=== PATIENT | female | born 1970 | race Caucasian/White ===

== ENCOUNTER 2017-09-15 14:18 | Inpatient (IN) | payer MEDICAID ==
[~2017-09-15] VITALS: Ht 165.1 cm; Wt 39.9 kg
--- NOTE | 2017-09-15 12:20 | NUR ---
ATTEMPTED TO DO RESPIRATORY SPUTUM COLLECTION. PT UNABLE TO COUGH, REFUSED TO CONTINUE AT THIS TIME. FELA SHUKLA NOTIFIED. Addendum: 09/16/17 at 0334 by CHARLENE MUNROE RT INCORRECT TIME DOCUMENTED. CORRECT TIME 09/16/17 AT 0020.
--- NOTE | 2017-09-15 14:30 | NUR ---
AAOX3, C/O ON/OFF COUGH,CHEST PAIN X 3MONTHS, PAINFUL SWALLOWING H/O AIDS, HAS NOT TAKEN HER MEDS SINCE 10/2016. RR IS EVEN AND UNLABORED WITH NAD NOTED. ASSISTED TO HOSPITAL GOWN. PLACED ON MONITOR. WILL CONTINUOUSLY MONITOR THE PATIENT. AWAITING MD FOR EVAL.
[2017-09-15 15:26] LABS: BASOPHILS % (AUTO) 0.5 % (0.0-2.0); EOSINOPHILS % (AUTO) 0.6 % (0.0-6.0); HEMATOCRIT 38 % (33-45); HEMOGLOBIN 12.6 g/dL (11.5-14.8); MEAN CORPUSCULAR HGB CONC 33 g/dl (31.0-36.0); MEAN CORPUSCULAR VOLUME 87 fL (82-100); MONOCYTES # (AUTO) 0.3 /CMM (0.1-1.30); MONOCYTES % (AUTO) 5.9 % (2.0-12.0); NEUTROPHILS # (AUTO) 3.3 /CMM (1.8-8.9); PLATELET COUNT (AUTO) 325 /CMM (150-450); RDW COEFFICIENT OF VARIATION 15.2 (11.5-15.0); RED BLOOD CELL COUNT(AUTO) 4.35 MIL/uL (4.0-5.2); WHITE BLOOD COUNT (AUTO) 4.6 K/uL (4.3-11.0)
[2017-09-15] MEDS ORDERED: LEVO750T21 PO (15:35)
[2017-09-15] MEDS ORDERED: OXYC-132 PO (15:35)
[2017-09-15] MEDS ORDERED: ALPR1TAB2 PO (15:35)
[2017-09-15] MEDS ORDERED: DOLU1TAB PO (15:35)
[2017-09-15] MEDS ORDERED: BICT1TAB PO (15:35)
[2017-09-15] MEDS ORDERED: EMTR1TAB17 PO (15:35)
[2017-09-15] MEDS ORDERED: SULF1TAB48 PO (15:35)
[2017-09-15] MEDS ORDERED: FLUC200T8 PO (15:35)
[2017-09-15] MEDS ORDERED: ESCI20TA PO (15:35)
[2017-09-15 15:36] LABS: CALCIUM, SERUM 8.7 mg/dL (8.5-10.1); CARBON DIOXIDE 31 mmol/L (21-32); CHLORIDE 103 mmol/L (98-107); CREATININE 0.8 mg/dL (0.6-1.3); GLUCOSE 82 mg/dL (74-106); POTASSIUM 3.7 mmol/L (3.5-5.1); SODIUM SERUM 138 mmol/L (136-145); UREA NITROGEN, BLOOD 23 mg/dL (7-18)
[2017-09-15 15:40] LABS: INR 0.9 (0.85-1.15)
[2017-09-15] MEDS ORDERED: CEFTRIAXONE 1GM BAG (ER ONLY) 50 ML IV ONE ×2 (15:40→16:00)
--- NOTE | 2017-09-15 15:40 | NUR ---
CALLED FOR FOOD TRAY.
[2017-09-15 15:42] LABS: ALANINE AMINOTRANSFERASE 16 U/L (12-78); ALKALINE PHOSPHATASE 82 U/L (46-116); ASPARTATE AMINOTRANSFERASE 56 U/L (15-37); BILIRUBIN,TOTAL 0.1 mg/dL (0.2-1.0); TOTAL PROTEIN, SERUM 8.4 g/dL (6.4-8.2)
[2017-09-15 15:44] LABS: TROPONIN I < 0.017 ng/mL (0.00-0.056)
[2017-09-15] MEDS ORDERED: AZITHROMYCIN 500 MG in IV D5W 250 ML IV ONE (16:00)
--- NOTE | 2017-09-15 16:10 | NUR ---
ms edgar received a new admission, awake,alert,oriented x2,patient came from er w/ dx of pneumonia/weakness. st -112 on monitor, repositioned for comfort, all needs attended. Addendum: 09/15/17 at 1908 by MAURI JANSEN RN wrong time, should be [id number]
--- NOTE | 2017-09-15 17:15 | NUR ---
REPORT GIVEN TO FELA DOTSON FOR DENY TELE [phone]
--- NOTE | 2017-09-15 17:40 | NUR ---
PATIENT TRANSPORTED TO [facility] VIA ACLS PROTOCOL. RNMAURI TO PROVIDE DENY.
[2017-09-15 18:15] VITALS: BP 105/65
--- NOTE | 2017-09-15 18:15 | NUR ---
ms rn received a new admission, awake,alert,oriented x2,patient came from er w/ dx of pneumonia/weakness. st -112 on monitor, repositioned for comfort, all needs attended.
[2017-09-15 18:30] VITALS: BP 105/65
--- NOTE | 2017-09-15 18:30 | NUR ---
ms rn text jose guadalupe for orders.
[2017-09-15] MEDS ORDERED: ZOLPIDEM TARTRATE 5 MG TABLET PO PRN (19:00)
[2017-09-15] MEDS ORDERED: HYDROCODONE/APAP 5/325MG 1 EACH TABLET PO PRN (19:00)
[2017-09-15] MEDS ORDERED: ONDANSETRON HCL/PF 4 MG/2 ML VIAL IVP PRN (19:00)
--- NOTE | 2017-09-15 19:00 | NUR ---
ms rn on bed, no distress,will endorsed to date night caregiver for radha.
[2017-09-15] MEDS: ALBUTEROL FS 2.5 MG/0.5 ML VIAL.NEB NEB SCH (19:30)
[2017-09-15] MEDS: IPRATROPIUM NEB FS 0.5 MG/2.5 ML AMPUL.NEB NEB SCH (19:30)
--- NOTE | 2017-09-15 19:35 | NUR ---
TELE/RN NOTES RECEIVED PT. LYING IN BED. PT. IS AWAKE, ALERT AND ORIENTED X1-2. BREATHING EVEN AND UNLABORED ON 2LPM O2 VIA NC. NO SOB, RESPIRATORY DISTRESS OR COMPLAINTS OF PAIN NOTED AT THIS TIME. PT. WITH EXTERNAL FINANCIAL REPORTING ADVISOR PRESENT AND INTACT. CURRENT RHYTHM = SINUS TACH HR 110. PT. WITH RIGHT AC 20 GAUGE IV SALINE LOCK PRESENT, PATENT AND INTACT. BED LOCKED AND IN LOWEST POSITION, SIDE RAILS UP X3, BED ALARM ON, CALL LIGHT WITHIN REACH, WILL CONTINUE TO MONITOR.
[2017-09-15 20:00] VITALS: BP 90/60
--- NOTE | 2017-09-15 20:15 | NUR ---
TELE/RN NOTES PT. NOTED WITH TEMPERATURE OF 102.6F. BLOOD CULTURES WERE DONE IN ER PRIOR TO ARRIVAL TO THE FLOOR. PT. RECEIVED IV ANTIBIOTICS IN THE ER. WILL ADMINISTER TO PT. TYLENOL ORDERED AND WILL IMPLEMENT COOLING MEASURES. WILL CONTINUE TO MONITOR.
[2017-09-15] MEDS: IV NS 0.9% 1,000 ML IV PRN (20:34)
[2017-09-15] MEDS: ACETAMINOPHEN 325 MG TABLET PO PRN (20:34)
--- NOTE | 2017-09-15 21:20 | NUR ---
TELE/RN NOTES PT. TEMPERATURE IS 100.4F. WILL CONTINUE WITH COOLING MEASURES. WILL CONTINUE TO MONITOR.
[2017-09-15] MEDS: ENOXAPARIN SODIUM 40 MG/0.4 ML DISP.SYRIN SQ SCH (21:45)
[2017-09-15] MEDS: SULFAMETHOXAZOLE/TRIMETHOPRIM 15 ML in IV D5W 250 ML IV SCH (21:46)
--- NOTE | 2017-09-15 22:50 | NUR ---
TELE/RN NOTES PT. TEMPERATURE IS 98.5F. PT. APPEARS COMFORTABLE AT THE MOMENT. COOLING MEASURES EFFECTIVE. WILL CONTINUE TO MONITOR.
--- NOTE | 2017-09-15 23:24 | NUR ---
TX @1930 NOT GIVEN, PT IS ASLEEP. FELA SHUKLA NOTIFIED.
[2017-09-16] VITALS: BP 93/53
[2017-09-16] MEDS ORDERED: SULFAMETHOXAZOLE/TRIMETHOPRIM 10 ML in IV D5W 250 ML IV SCH ×2
[2017-09-16] MEDS: DEXAMETHASONE SOD PHOSPHATE 10 MG/ML VIAL IV SCH ×5 (00:06→23:48)
--- NOTE | 2017-09-16 00:20 | NUR ---
ATTEMPTED TO DO RESPIRATORY SPUTUM COLLECTION. PT UNABLE TO COUGH, REFUSED TO CONTINUE AT THIS TIME. FELA SHUKLA NOTIFIED.
--- NOTE | 2017-09-16 00:25 | NUR ---
TELE/RN NOTES RT. CHARLENE ATTEMPTED TO OBTAIN PT. SPUTUM FOR STAT ORDERS OF RESPIRATORY CULTURE AND PNEUMOCYSTITIS SMEAR. PT. UNABLE TO COUGH AND IS REFUSING TO CONTINUE TO ATTEMPT AT THIS TIME. WILL ATTEMPT AGAIN AT A LATER TIME. WILL CONTINUE TO MONITOR.
[2017-09-16 04:34] VITALS: BP 98/61
[2017-09-16] MEDS: SULFAMETHOXAZOLE/TRIMETHOPRIM 15 ML in IV D5W 250 ML IV SCH ×3 (05:19→23:48)
--- NOTE | 2017-09-16 06:00 | NUR ---
TELE/RN NOTES PT. IS REFUSING PICTURES OF HER RIGHT HIP/UPPER THIGH RASH. PT. STATES SHE WANTS TO BE LEFT ALONE TO SLEEP. WILL ENDORSE TO DAYSHIFT NURSE TO ATTEMPT TO TAKE PICTURE OF RASH.
--- NOTE | 2017-09-16 06:44 | NUR ---
TELE/RN NOTES PT. IS LYING IN BED RESTING. BREATHING EVEN AND UNLABORED ON 2LPM O2 VIA NC. NO SOB, RESPIRATORY DISTRESS OR COMPLAINTS OF PAIN NOTED AT THIS TIME. PT. WITH EXTERNAL PLASTICS WORKER PRESENT AND INTACT. CURRENT RHYTHM = SINUS RHYTHM HR 69. PT. WITH RIGHT AC 20 GAUGE PERIPHERAL IV PRESENT, PATENT AND INTACT ADMINISTERING TO PT. NS @ 75 ML/HR. ALL PT. NEEDS MET. BED LOCKED AND IN LOWEST POSITION, SIDE RAILS UP X3, BED ALARM ON, CALL LIGHT WITHIN REACH, WILL ENDORSE TO DAYSHIFT NURSE FOR CONTINUITY OF CARE.
[2017-09-16 07:05] LABS: BASOPHILS % (AUTO) 0.1 % (0.0-2.0); EOSINOPHILS % (AUTO) 0.2 % (0.0-6.0); HEMATOCRIT 35 % (33-45); HEMOGLOBIN 11.8 g/dL (11.5-14.8); LYMPHOCYTES # (AUTO) 0.8 /CMM (0.8-4.8); LYMPHOCYTES % (AUTO) 16.4 % (20.0-44.0); MEAN CORPUSCULAR HGB CONC 34 g/dl (31.0-36.0); MEAN CORPUSCULAR VOLUME 87 fL (82-100); MONOCYTES # (AUTO) 0.1 /CMM (0.1-1.30); MONOCYTES % (AUTO) 1.3 % (2.0-12.0); PLATELET COUNT (AUTO) 255 /CMM (150-450); RDW COEFFICIENT OF VARIATION 15.3 (11.5-15.0); RED BLOOD CELL COUNT(AUTO) 4.03 MIL/uL (4.0-5.2); WHITE BLOOD COUNT (AUTO) 4.9 K/uL (4.3-11.0)
[2017-09-16 07:08] LABS: *BASOS 0 % (Not Estab.); *EOS 0 % (Not Estab.); *HCT 37.9 % (34.0-46.6); *HGB 12.7 g/dL (11.1-15.9); *IMMATURE GRANULOCYTES 0 % (Not Estab.); *LYMPHOCYTES 16 % (Not Estab.); *LYMPHS, ABSOLUTE 0.9 x10E3/uL (0.7-3.1); *MCH 29.2 pg (26.6-33.0); *MCHC 33.5 g/dL (31.5-35.7); *MCV 87 fL (79-97); *MONOCYTES 5 % (Not Estab.); *MONOS, ABSOLUTE 0.3 x10E3/uL (0.1-0.9); *NEUTROPHILS 79 % (Not Estab.); *NEUTROPHILS, ABSOLUTE 4.2 x10E3/uL (1.4-7.0); *PLT 329 x10E3/uL (150-379); *RBC 4.35 x10E6/uL (3.77-5.28); *RDW 15.9 % (12.3-15.4)
--- NOTE | 2017-09-16 07:10 | NUR ---
REPORT RECEIVED AT THE BEDSIDE. PATIENT IS RESTING COMFORTABLY IN BED. NO SOB OR DISTRESS NOTED AT THIS TIME. PATIENT DENIES PAIN AT THIS TIME. HEART RATE SR IN THE 70S. BED IN A LOW POSITION, CALL LIGHT WITHIN PATIENT REACH. WILL MONITOR.
[2017-09-16 07:15] LABS: ALBUMIN 1.7 g/dL (3.4-5.0); BILIRUBIN,TOTAL 0.1 mg/dL (0.2-1.0); CALCIUM, SERUM 8.1 mg/dL (8.5-10.1); CREATININE 0.7 mg/dL (0.6-1.3); MAGNESIUM 1.8 mg/dL (1.8-2.4); PHOSPHORUS 4.8 mg/dL (2.5-4.9); POTASSIUM 3.6 mmol/L (3.5-5.1); TOTAL PROTEIN, SERUM 7.3 g/dL (6.4-8.2)
[2017-09-16 07:20] LABS: THYROID STIMULATING HORMONE 0.267 uIU/mL (0.358-3.74)
[2017-09-16] MEDS: ALBUTEROL FS 2.5 MG/0.5 ML VIAL.NEB NEB SCH ×4 (07:33→19:44)
[2017-09-16] MEDS: IPRATROPIUM NEB FS 0.5 MG/2.5 ML AMPUL.NEB NEB SCH ×4 (07:33→19:44)
[2017-09-16 08:00] VITALS: BP 99/61
--- NOTE | 2017-09-16 08:00 | NUR ---
PATIENT STILL REFUSING PICTURES OF RASH ON RIGHT THIGH. WILL CONTINUE TO ATTEMPT.
--- NOTE | 2017-09-16 10:40 | NUR ---
WENT TO PATIENT AND ENCOURAGED HER TO TURN SHE HAS BEEN IN THE SAME POSITION ON HER BACK SINCE THE MORNING. PT STATS "LEAVE ME ALONE I AM COMFORTABLE." EXPLAINED THE RISKS OF PROLONGED PERIODS OF TIME SPENT IN ONE POSITION IN TERMS OF SKIN BREAKDOWN, BUT THE PATIENT STILL REFUSES TO MOVE. WILL CONTINUE TO ATTEMPT TO ENCOURAGE TURNING.
--- NOTE | 2017-09-16 11:00 | NUR ---
CJ VERGARA ON FLOOR. INFORMED HER OF RASH ON RIGHT LATERAL THIGH. SHE STATES SHE WILL PLACE ORDERS FOR TREATMENT.
[2017-09-16] MEDS: LEVOFLOXACIN 750 MG /D5W 150ML 150 ML IV SCH (11:11)
[2017-09-16] MEDS: Z GUARD REMEDY 2 OZ OINT TP PRN ×2 (11:11→21:24)
[2017-09-16] MEDS: IV NS 0.9% 1,000 ML IV PRN (11:12)
--- NOTE | 2017-09-16 11:14 | NUR ---
WOUND CARE CONSULT: PT WAS SEEN BY SURGICAL TEAM. DEFER TO SURGICAL TEAM FOR WOUND TREATMENT PLAN. ALL SKIN PROTECTION MEASURES IN PLACE AND DISCUSSED WITH NURSING STAFF. CURRENT FANY SCORE IS 18.
--- NOTE | 2017-09-16 11:20 | NUR ---
RT NOTE ENCOURAGED PATIENT TO COUGH UP SECRETIONS FOR SPUTUM INDUCTION. PATIENT IS AWARE AND WILL ATTEMPT TO COUGH UP SECRETIONS IF NECESSARY. NURSE, BC, SINCERE.
--- NOTE | 2017-09-16 13:58 | NUR ---
ORDERED 3% SALINE SOLUTION FOR SPUTUM COLLECTION WITH NEXT BREATHING TX. INFORMED RT OF NEED FOR SPUTUM COLLECTION FOR NEXT TWO MORNINGS WELL.
[2017-09-16 14:22] LABS: *% CD 4 POS. LYMPH 10.6 % (30.8-58.5); *% CD 8 POS. LYMPH 71.1 % (12.0-35.5); *ABSOLUTE CD 4 HELPER 95 /uL (359-1519); *ABSOLUTE CD 8 SUPPRESSOR 640 /uL (109-897); *CD4/CD8 RATIO 0.15 (0.92-3.72)
[2017-09-16] MEDS ORDERED: PETROLATUM,WHITE PACKET 5 GM PACKET TP PRN (14:30)
[2017-09-16] MEDS ORDERED: SODIUM CL FOR INHALATION 3% 15 ML VIAL.NEB IH ONE (15:00)
--- NOTE | 2017-09-16 15:50 | NUR ---
RT NOTE ADMINISTERED HYPERTONIC SOLUTION VIA AEROSOL MASK. ENCOURAGED PATIENT TO COUGH UP SPUTUM POST TX. PATIENT UNABLE TO COUGH. NURSE, SINCERE YANCEY.
[2017-09-16 16:00] VITALS: BP 131/70
--- NOTE | 2017-09-16 18:47 | NUR ---
PT REPORTS ORAL THRUSH STARTING. CALLED DR YANCEY FOR ORDERS. WAITING FOR RETURN CALL. WILL DEFER TO NIGHT RN.
[2017-09-16 20:00] VITALS: BP_SYST 86; BP_SYST 99; BP_DIAS 56
--- NOTE | 2017-09-16 20:30 | NUR ---
MS CURED MEAT PACKING SUPERVISOR NOTES SEEN PT IN BED AWAKE AND ALERT WITH IVF OF NS AT 75ML/HR. REPOSITION HER BACK TO SEMI FOWLERS AFTER BLOOD PRESSURE BACK TO WITHIN NORMAL LIMIT. SNACKS ALSO SERVED PER PT COMFORT. SHE STATED "THANK YOU ".KEPT HER WARM AND COMFORTABLE AT ALL TIMES. WILL CONTINUE TO MONITOR. PLACE CALL LIGHT AT REACH.
[2017-09-16] MEDS: ENOXAPARIN SODIUM 40 MG/0.4 ML DISP.SYRIN SQ SCH (21:33)
--- NOTE | 2017-09-16 22:00 | NUR ---
MS DAVID NOTES AMBIEN GIVEN PER PT REQUESTED. EDUCATE PT REGARDING SIDE EFFECT OF HER MEDICATION AND SHE UNDERSTOOD WELL. KEPT HER WARM AND COMFORTABLE AT ALL TIMES. PLACE CALL LIGHT AT REACH.
[2017-09-16 23:36] VITALS: BP 91/56
[2017-09-16] MEDS: ACETAMINOPHEN 325 MG TABLET PO PRN (23:54)
[2017-09-17] VITALS (32 sets, daily range): BP systolic 88–128; BP diastolic 56–82
[2017-09-17] MEDS: IV NS 0.9% 1,000 ML IV PRN ×2 (04:49→23:50)
[2017-09-17] MEDS: MAGNESIUM HYDROXIDE 30 ML UDC PO PRN (04:49)
[2017-09-17] MEDS: DEXAMETHASONE SOD PHOSPHATE 10 MG/ML VIAL IV SCH ×4 (05:41→23:50)
[2017-09-17] MEDS ORDERED: SODIUM CL FOR INHALATION 3% 15 ML VIAL.NEB IH ONE (07:00)
--- NOTE | 2017-09-17 07:00 | NUR ---
MS SMALL MACHINE BINDERY OPERATOR CLOSING NOTES PT SLEEPING COMFORTABLY AT THIS TIME, NO SIGNS OF ANY ACUTE DISTRESS NOTED. BREATHING EVEN AND NON-LABORED. STILL WITH O2 AT 3LITERS VIA MASK . IVF STILL INFUSING. ALL DUE MEDS GIVEN AND ALL NEEDS MET. KEPT HER WARM AND COMFORTABLE AT ALL TIMES. WILL ENDORSE TO AM NURSE FOR CONTINUITY OF CARE. PLACE CALL LIGHT AT REACH.
--- NOTE | 2017-09-17 07:15 | NUR ---
REPORT RECEIVED AT THE BEDSIDE. PATIENT IS RESTING COMFORTABLY IN BED. NO SOB OR DISTRESS NOTED AT THIS TIME. PATIENT ON 4L MASK SATING LOW 90S. PATIENT DOES NOT APPEAR TO BE IN PAIN, NO FACIAL GRIMACE NOTED. BED IN A LOW POSITION, CALL LIGHT WITHIN PATIENT REACH. WILL MONITOR.
[2017-09-17] MEDS: ALBUTEROL FS 2.5 MG/0.5 ML VIAL.NEB NEB SCH ×4 (08:17→19:46)
[2017-09-17] MEDS: IPRATROPIUM NEB FS 0.5 MG/2.5 ML AMPUL.NEB NEB SCH ×4 (08:17→19:46)
[2017-09-17] MEDS: SULFAMETHOXAZOLE/TRIMETHOPRIM 15 ML in IV D5W 250 ML IV SCH ×2 (08:30→16:29)
[2017-09-17] MEDS: NYSTATIN (PYXIS) 500,000 UNIT/5 ML ORAL.SUSP PO SCH ×3 (08:30→16:29)
--- NOTE | 2017-09-17 08:47 | NUR ---
PT DESATURATING TO 86 ON 6LMASK. INCREASED FLOW TO 10L ON THE MASK. PT SAT 91-92%. PT IS SHORT OF BREATH AND USING ACCESSORY MUSCLES. CALLED [facility] FOR DOCTOR YANCEY FOR A STAT CALL BACK. DR YANCEY HAS IN HIS NOTES LOW THRESHOLD FOR TRANSFER TO THE ICU. WILL WAIT FOR RETURN CALL.
[2017-09-17] MEDS ORDERED: LAMIVUDINE (150MG) 150 MG TABLET PO SCH (09:00)
[2017-09-17] MEDS ORDERED: DAPSONE 25 MG TABLET PO SCH (09:00)
[2017-09-17] MEDS ORDERED: EFAVIRENZ 600 MG TABLET PO SCH (09:00)
--- NOTE | 2017-09-17 09:28 | NUR ---
SECOND CALL TO DR YANCEY PLACED THROUGH [place]. ASKED EPIC SHADER AND TONER TO PLACE CALL SAT.
[2017-09-17] MEDS ORDERED: MORPHINE SULFATE INJ 4 MG/ML DISP.SYRIN IV ONE (09:34)
--- NOTE | 2017-09-17 09:37 | NUR ---
DR YANCEY RETURNED CALL. METAL GRADER ASKS TO HAVE THE PT TRANSFERRED TO ICU AND PLACED ON BIPAP. GIVE MORPHINE 4MG IV NOW. STATES PATIENT NEEDS TO BE MONITORED FOR DECOMPENSATION AND MAY NEED POSSIBLE INTUBATION.
--- NOTE | 2017-09-17 10:10 | NUR ---
PT TRANSFERED TO ICU ON TELE MONITORING. REPORT GIVEN TO FELA HART, FOR DENY.
--- NOTE | 2017-09-17 10:20 | NUR ---
SPINNER BOX RECEIVED PT BY BED FROM M/S. PT TRANSFERRED FOR INCREASING SOB. PT CURRENTLY ON MASK, BIPAP TO BE STARTED.
--- NOTE | 2017-09-17 10:31 | NUR ---
CARDIOPULMONARY PHYSICAL THERAPIST NOTE RCVD PT AWAKE AND ALERT, TRANSFERRED FROM 3W. REPORT FROM FELA YANCEY. PT APPEARS A BIT ANXIOUS. ON BIPAP TOLERATING WELL. DIAPER ON. RIGHT AC C/D/I/PATENT. PT C/O HEADACHE PER BC MORPHINE GIVEN PRIOR TO TRANSFER, PT INFORMED. WILL CONTINUE TO ASSESS FOR PAIN. WILL CONTINUE TO MONITOR PT FOR SAFETY AND COMFORT. CALL LIGHT WITHIN REACH. BED IN LOW AND LOCKED POSITION.
--- NOTE | 2017-09-17 10:36 | NUR ---
RT NOTE RECEIVED PT ON SIMPLE MASK AWAKE AND ALERT. PT PLACED ON BIPAP PER MD ORDER. SETTINGS FOLLOW ST 15/09 80%. MEPILEX PLACED ON MASK. ALARMS SET PER PROTOCOL AND AUDIBLE. BIPAP PLUGGED IN TO RED OUTLET. AMBU BAG AT BED SIDE. NO DISTRESS NOTED AT MOMENT. WILL CONTINUE TO MONITOR. Addendum: 09/17/17 at 1039 by MARÍA MILLS RT Amended: Links added.
--- NOTE | 2017-09-17 12:18 | NUR ---
ASSEMBLER MOLDED FRAMES NOTE DEBBY YANCEY IN UNIT INFORMED THAT PT UNABLE TO PRODUCE SPUTUM FOR CULTURE AND THAT NERA WAS CONTACTED EARLIER TODAY TO COME AND SEE PT.
[2017-09-17] MEDS: LEVOFLOXACIN 750 MG /D5W 150ML 150 ML IV SCH (12:48)
[2017-09-17] MEDS: LORAZEPAM INJ 2 MG/ML VIAL IV PRN ×2 (12:49→18:57)
[2017-09-17 15:56] LABS: ABG OXYGEN SATURATION 90.7 % (92.0-98.5); ABG PCO2 35.2 mmHg (35.0-45.0); AaDO2 180.7 mmHg; COHb 0.3 % (0.5-1.5); MetHb 2.6 % (0.0-1.5); O2Hb 88.1 % (94.0-97.0); SITE, ABG Left Radial; VENT MODE, BG NC 5L
[2017-09-17] MEDS: HYDROMORPHONE INJ 0.5 MG/0.5 ML SYRINGE IV PRN ×2 (16:44→23:51)
--- NOTE | 2017-09-17 18:26 | NUR ---
CANE BURNER NOTE RT CALLED TO PT'S BEDSIDE TO PUT PT BACK ON BIPAP DUE TO DESATURATION TO 86-88% ON SIMPLE MASK 6L. PT AWARE AND AGREES WITH RECOMMENDATION. REMAINING VITAL SIGNS STABLE. PT'S CARE WILL BE ENDORSED TO FITNESS CLUB MANAGER RN FOR CONTINUITY OF CARE. BED IN LOW AND LOCKED POSITION. CALL LIGHT WITHIN REACH.
--- NOTE | 2017-09-17 20:00 | NUR ---
PROMOTIONS ASSISTANT NOTE RCVD PT AWAKE AND ALERT, IN BED SON BY BED SIDE. REPORT FROM FELA MOREAU. PT APPEARS A BIT ANXIOUS. ON SIMPLE MASK @ 6L TOLERATING WELL. DIAPER ON. RIGHT AC C/D/I/PATENT. WILL CONTINUE TO MONITOR PT FOR SAFETY AND COMFORT. CALL LIGHT WITHIN REACH. BED IN LOW AND LOCKED POSITION.
--- NOTE | 2017-09-17 20:10 | NUR ---
RN NOTES TRANSFER PT CARE AND REPORT GIVEN TO SUSIE CHAHAL FOR CONTINUITY OF CARE. PT STABLE ATE 20% OF HER DINNER. STABLE ONO2 3LPM VIA NC AT THIS TIME. PERICARE PROVIDED AND TOLERATED WELL. ENDORSED CONTINUITY OF CARE.
[2017-09-17] MEDS: DOXYCYCLINE HYCLATE (100 MG) 100 MG TABLET PO SCH (20:49)
[2017-09-17] MEDS: CEFTRIAXONE 1 G in IV NS 0.9% 50 ML IV SCH (20:49)
[2017-09-17] MEDS: FLUCONAZOLE (100 MG) 100 MG TABLET PO SCH (20:49)
[2017-09-17] MEDS: ENOXAPARIN SODIUM 40 MG/0.4 ML DISP.SYRIN SQ SCH (21:14)
[2017-09-17] MEDS: ACETAMINOPHEN 325 MG TABLET PO PRN (23:32)
[2017-09-18] VITALS (41 sets, daily range): BP systolic 91–138; BP diastolic 30–79
[2017-09-18] MEDS: SULFAMETHOXAZOLE/TRIMETHOPRIM 15 ML in IV D5W 250 ML IV SCH ×3 (00:09→16:06)
[2017-09-18] MEDS: DEXAMETHASONE SOD PHOSPHATE 10 MG/ML VIAL IV SCH ×3 (05:00→17:59)
[2017-09-18 05:14] LABS: BASOPHILS % (AUTO) 0.1 % (0.0-2.0); HEMATOCRIT 34 % (33-45); HEMOGLOBIN 11.4 g/dL (11.5-14.8); LYMPHOCYTES # (AUTO) 0.7 /CMM (0.8-4.8); LYMPHOCYTES % (AUTO) 4.8 % (20.0-44.0); MEAN CORPUSCULAR HGB CONC 33 g/dl (31.0-36.0); MEAN CORPUSCULAR VOLUME 88 fL (82-100); MONOCYTES # (AUTO) 0.3 /CMM (0.1-1.30); MONOCYTES % (AUTO) 2.5 % (2.0-12.0); NEUTROPHILS # (AUTO) 12.5 /CMM (1.8-8.9); NEUTROPHILS % (AUTO) 92.6 % (43.0-81.0); PLATELET COUNT (AUTO) 294 /CMM (150-450); RDW COEFFICIENT OF VARIATION 16.7 (11.5-15.0); RED BLOOD CELL COUNT(AUTO) 3.89 MIL/uL (4.0-5.2); WHITE BLOOD COUNT (AUTO) 13.5 K/uL (4.3-11.0)
[2017-09-18 05:52] LABS: CALCIUM, SERUM 8.4 mg/dL (8.5-10.1); CREATININE 0.7 mg/dL (0.6-1.3); MAGNESIUM 2.4 mg/dL (1.8-2.4); PHOSPHORUS 3.2 mg/dL (2.5-4.9); POTASSIUM 5.1 mmol/L (3.5-5.1)
--- NOTE | 2017-09-18 06:35 | NUR ---
PROTOCOL OFFICER CLOSING NOTE ENDORSED PT AWAKE AND ALERT, IN BED . PT APPEARS A BIT ANXIOUS, CONSTANTLY HOLDING ON TO BIPAP CAUSING IT TO BEEP. ON BIPAP TOLERATING WELL. DIAPER ON. RIGHT AC C/D/I/PATENT. WILL CONTINUE TO MONITOR PT FOR SAFETY AND COMFORT. CALL LIGHT WITHIN REACH. BED IN LOW AND LOCKED POSITION.
--- NOTE | 2017-09-18 07:47 | NUR ---
INITIAL COMMUNITY ARTS CENTRE MANAGER NOTE RCVD PT AWAKE AND ALERT TO NAME/PLACE, FORGETFUL AND CONFUSED AT TIMES. SR ON TELE. ON BIPAP WITH ALARMS BEEPING. PT VOIDING TO DIAPER. RIGHT AC C/D/I/PATENT. NO S/O INFILTRATION/PHLEBITIS OBSERVED. IVF INFUSING. PT C/O PAIN 12/11 MEDICATION GIVEN ORDERED. WILL CONTINUE TO MONITOR. BED IN LOW AND LOCKED POSITION. CALL LIGHT WITHIN REACH.
[2017-09-18] MEDS: HYDROMORPHONE INJ 0.5 MG/0.5 ML SYRINGE IV PRN ×2 (07:51→16:17)
[2017-09-18] MEDS: FLUCONAZOLE (100 MG) 100 MG TABLET PO SCH (08:03)
[2017-09-18] MEDS: DOXYCYCLINE HYCLATE (100 MG) 100 MG TABLET PO SCH ×2 (08:03→21:33)
[2017-09-18] MEDS: NYSTATIN (PYXIS) 500,000 UNIT/5 ML ORAL.SUSP PO SCH ×3 (08:03→16:08)
[2017-09-18] MEDS: ALBUTEROL FS 2.5 MG/0.5 ML VIAL.NEB NEB SCH ×4 (08:16→19:39)
[2017-09-18] MEDS: IPRATROPIUM NEB FS 0.5 MG/2.5 ML AMPUL.NEB NEB SCH ×4 (08:16→19:39)
--- NOTE | 2017-09-18 09:39 | NUR ---
MANAGER RELOCATION NOTE PT OFF BIPAP ON NASAL CANNULA TOLERATING WELL. WILL CONTINUE TO MONITOR.
[2017-09-18] MEDS: LORAZEPAM INJ 2 MG/ML VIAL IV PRN ×3 (10:03→21:33)
[2017-09-18] MEDS: LEVOFLOXACIN 750 MG /D5W 150ML 150 ML IV SCH (11:27)
[2017-09-18] MEDS: IV NS 0.9% 1,000 ML IV PRN (18:05)
--- NOTE | 2017-09-18 19:07 | NUR ---
PARACHUTE MANUFACTURING SUPERVISOR NOTE PT AWAKE AND ALERT X2, FORGETFUL AND CONFUSED AT TIMES. PT REMAINS STABLE TOLERATING O2 VIA NC. SR ON TELE. INCONTINENT VOIDING TO DIAPER. RIGHT AC #20 C/D/I/PATENT. IVF INFUSING. PT'S CARE WILL BE ENDORSED TO GENERAL INTERN RN FOR CONTINUITY OF CARE. BED IN LOW AND LOCKED POSITION. CALL LIGHT WITHIN REACH.
--- NOTE | 2017-09-18 20:10 | NUR ---
RN NOTES RECEIVED PATIENT AWAKE IN BED WITH NO RESPIRATORY DISTRESS NOTED. BREATHING EVEN AND UNLABORED. ON O2 VIA NASAL CANNULA AT 6LPM, TOLERATING WELL. NO COMPLAINT OF PAIN OF THIS TIME. ALERT AND ORIENTED WITH EPISODES OF CONFUSION. ABLE TO VERBALLY COMMUNICATE NEEDS. VITAL SIGNS WNL. WILL CONTINUE TO MONITOR. KEPT CLEAN AND DRY
[2017-09-18] MEDS: ENOXAPARIN SODIUM 40 MG/0.4 ML DISP.SYRIN SQ SCH (21:35)
[2017-09-18] MEDS: CEFTRIAXONE 1 G in IV NS 0.9% 50 ML IV SCH (21:35)
--- NOTE | 2017-09-18 23:29 | NUR ---
RT NOTE ATTEMPTED TO PLACE PT ON BIPAP. PT REFUSED. NO RESP DISTRESS OR SOB NOTED. SPO2 96%. RN FATUMA AWARE.
[2017-09-19] VITALS (26 sets, daily range): BP systolic 90–126; BP diastolic 62–88
[2017-09-19] MEDS: SULFAMETHOXAZOLE/TRIMETHOPRIM 15 ML in IV D5W 250 ML IV SCH ×4 (00:14→23:27)
[2017-09-19] MEDS: DEXAMETHASONE SOD PHOSPHATE 10 MG/ML VIAL IV SCH ×5 (00:14→23:28)
--- NOTE | 2017-09-19 00:24 | NUR ---
RN NOTES PATIENT ENDORSE TO RN MICHELLE FOR CONTINUITY OF CARE. VITAL SIGNS WNL. NO DISTRESS NOTED. TOLERATING 02 AT 6 LPM VIA NASAL CANNULA. NO SIGN OR SYMPTOM OF PAIN OR DISCOMFORT. KEPT CLEAN AND DRY.
--- NOTE | 2017-09-19 01:30 | NUR ---
MAT MACHINE TENDER - VERBAL REPORT ENDORSED TO ME BY ANGIE CHAHAL AT ONE AM. REC'D PT. RESTING W/EYES CLOSED. EASILY AROUSABLE. VSS. PT.IS ON O2/6L/NC W/O2 SATS >93%. PT.IS INCONTINENT/DIAPERED. SKIN INTACT. PT.IS CACHECTIC. RAC PIV IS INFUSING 0.9%NS AT 75CC/HR VIA BETANCOURT PUMP. AFEBRILE. NO S/S OF DISTRESS/DISCOMFORT. MONITORED CLOSELY. CONT.POC.
[2017-09-19 05:38] LABS: CALCIUM, SERUM 8.6 mg/dL (8.5-10.1); CREATININE 0.7 mg/dL (0.6-1.3); MAGNESIUM 1.8 mg/dL (1.8-2.4); PHOSPHORUS 3.4 mg/dL (2.5-4.9); POTASSIUM 4.7 mmol/L (3.5-5.1)
[2017-09-19 05:43] LABS: BASOPHILS % (AUTO) 0.2 % (0.0-2.0); HEMATOCRIT 35 % (33-45); HEMOGLOBIN 11.6 g/dL (11.5-14.8); LYMPHOCYTES # (AUTO) 0.4 /CMM (0.8-4.8); LYMPHOCYTES % (AUTO) 4.2 % (20.0-44.0); MEAN CORPUSCULAR HGB CONC 33 g/dl (31.0-36.0); MEAN CORPUSCULAR VOLUME 87 fL (82-100); MONOCYTES # (AUTO) 0.2 /CMM (0.1-1.30); MONOCYTES % (AUTO) 1.7 % (2.0-12.0); NEUTROPHILS # (AUTO) 9.3 /CMM (1.8-8.9); NEUTROPHILS % (AUTO) 93.9 % (43.0-81.0); PLATELET COUNT (AUTO) 293 /CMM (150-450); RDW COEFFICIENT OF VARIATION 16.3 (11.5-15.0); RED BLOOD CELL COUNT(AUTO) 3.98 MIL/uL (4.0-5.2); WHITE BLOOD COUNT (AUTO) 9.9 K/uL (4.3-11.0)
--- NOTE | 2017-09-19 06:46 | NUR ---
DINING ROOM SUPERVISOR - PT. IS RESTING INTERMITTENTLY, EASILY AROUSABLE, BUT VERY GROGGY IF AWOKEN. VSS. AFEBRILE. NO S/S OF DISTRESS/DISCOMFORT. CONT.POC.
[2017-09-19] MEDS: IV NS 0.9% 1,000 ML IV PRN (07:39)
[2017-09-19] MEDS: ALBUTEROL FS 2.5 MG/0.5 ML VIAL.NEB NEB SCH ×4 (08:04→19:30)
[2017-09-19] MEDS: IPRATROPIUM NEB FS 0.5 MG/2.5 ML AMPUL.NEB NEB SCH ×4 (08:04→19:30)
[2017-09-19] MEDS: DOXYCYCLINE HYCLATE (100 MG) 100 MG TABLET PO SCH (09:04)
[2017-09-19] MEDS: FLUCONAZOLE (100 MG) 100 MG TABLET PO SCH (09:05)
[2017-09-19] MEDS: NYSTATIN (PYXIS) 500,000 UNIT/5 ML ORAL.SUSP PO SCH ×3 (09:06→18:11)
[2017-09-19] MEDS: HYDROMORPHONE INJ 0.5 MG/0.5 ML SYRINGE IV PRN ×3 (09:09→23:37)
[2017-09-19] MEDS: LEVOFLOXACIN 750 MG /D5W 150ML 150 ML IV SCH (12:31)
[2017-09-19] MEDS: LORAZEPAM INJ 2 MG/ML VIAL IV PRN (12:31)
--- NOTE | 2017-09-19 16:15 | NUR ---
RN NOTE PATIENT TRANSFERRED TO ROOM 307. REPORT CALLED TO WILMER.
--- NOTE | 2017-09-19 16:20 | NUR ---
pt. transferred here via bed iv infusing.hooked up to tele. rhythm sr rate of 98.vs stable. family present.pt. oriented to rm.
--- NOTE | 2017-09-19 18:00 | NUR ---
medicated x 1 with dilaudid.pt. states headache and has hx of shingles.
--- NOTE | 2017-09-19 19:30 | NUR ---
ELECTRONIC EQUIPMENT SET UP OPERATOR NOTES RECEIVED ON BED,RESTLESS,WANTS TO GET UP TO GO TO THE RESTROOM,ON DIAPER,APPEARS WEAK.NS AT 75ML/HR RATE INFUSING WELL VIA IVP ON LEFT AC,SITE PATENT.AA/O X2-3,ABLE TO VERBALIZED NEEDS.O2 IN USED AT 5-6 LITERS TO KEEP O2 SAT ABOVE 90%,O2 SAT 93% PRESENTLY,SR-89 ON TELE MONITOR.CALL LIGHT IN REACH,NEEDS ANTICIPATED.PER REPORT,SHE'S A FULL BLOWN HIV,AND WITH KNOWN HX OF SHINGLES.
--- NOTE | 2017-09-19 20:30 | NUR ---
AIR CARRIER INSPECTOR NOTES DUE DAVID 1GM IVPB HUNG
[2017-09-19] MEDS: ENOXAPARIN SODIUM 40 MG/0.4 ML DISP.SYRIN SQ SCH (20:31)
[2017-09-19] MEDS: CEFTRIAXONE 1 G in IV NS 0.9% 50 ML IV SCH (20:32)
--- NOTE | 2017-09-19 23:37 | NUR ---
ENTRY LEVEL FINANCE NOTES PAIN MANAGEMENT C/O GENERALIZED PAIN 10/10 ON PAIN DUE TO SHINGLES,DILAUDID 0.5MG IV GIVEN ORDERED.FALL PRECAUTION OBSERVED.
[2017-09-20] VITALS: BP 100/62
--- NOTE | 2017-09-20 01:00 | NUR ---
RENEWABLE ENERGY CONSULTANT NOTES SLEEPING,KEPT WARM AND COMFORTABLE.
[2017-09-20 04:00] VITALS: BP 112/91
--- NOTE | 2017-09-20 04:30 | NUR ---
COMMUNITY HEALTH COORDINATOR NOTES MORNING CARE RENDERED BY SERENITY NULL,TOLERATED WELL.
[2017-09-20] MEDS: DEXAMETHASONE SOD PHOSPHATE 10 MG/ML VIAL IV SCH ×4 (05:38→23:40)
[2017-09-20] MEDS: IV NS 0.9% 1,000 ML IV PRN ×2 (05:50→23:40)
[2017-09-20] MEDS: HYDROMORPHONE INJ 0.5 MG/0.5 ML SYRINGE IV PRN (05:59)
--- NOTE | 2017-09-20 05:59 | NUR ---
LEAD SOFTWARE ARCHITECT NOTES C/O GENERALIZED PAIN,MOANING,PAIN SCALE OF 9/10,DILAUDID 0.5MG IV GIVEN ORDERED FOR SEVERE PAIN.FALL PRECAUTION OBSERVED.
--- NOTE | 2017-09-20 06:26 | NUR ---
ACCOUNTS EXECUTIVE NOTES SR-74 ON TELE MONITOR.STILL IN PAIN ON AND OFF,MANAGE WITH DILAUDID 0.5MG IV WITH RELIEF.IVF INFUSING,SITE REMAINS PATENT ON RIGHT AC.CALL CHARISMA REACH,NEEDS ATTENDED.WILL ENDORSE TO DAY NURSE FOR DENY.
[2017-09-20 06:42] LABS: BASOPHILS % (AUTO) 0.1 % (0.0-2.0); HEMATOCRIT 38 % (33-45); HEMOGLOBIN 12.5 g/dL (11.5-14.8); LYMPHOCYTES # (AUTO) 0.4 /CMM (0.8-4.8); LYMPHOCYTES % (AUTO) 4.2 % (20.0-44.0); MEAN CORPUSCULAR HGB CONC 33 g/dl (31.0-36.0); MEAN CORPUSCULAR VOLUME 87 fL (82-100); MONOCYTES # (AUTO) 0.2 /CMM (0.1-1.30); MONOCYTES % (AUTO) 2.5 % (2.0-12.0); NEUTROPHILS # (AUTO) 8.3 /CMM (1.8-8.9); NEUTROPHILS % (AUTO) 93.2 % (43.0-81.0); PLATELET COUNT (AUTO) 314 /CMM (150-450); RDW COEFFICIENT OF VARIATION 16.1 (11.5-15.0); RED BLOOD CELL COUNT(AUTO) 4.32 MIL/uL (4.0-5.2); WHITE BLOOD COUNT (AUTO) 8.9 K/uL (4.3-11.0)
[2017-09-20] MEDS: IPRATROPIUM NEB FS 0.5 MG/2.5 ML AMPUL.NEB NEB SCH ×4 (06:46→19:57)
[2017-09-20] MEDS: ALBUTEROL FS 2.5 MG/0.5 ML VIAL.NEB NEB SCH ×4 (06:46→19:57)
[2017-09-20 07:11] LABS: CALCIUM, SERUM 9.4 mg/dL (8.5-10.1); CREATININE 0.7 mg/dL (0.6-1.3); MAGNESIUM 2.1 mg/dL (1.8-2.4); PHOSPHORUS 3.3 mg/dL (2.5-4.9); POTASSIUM 4.8 mmol/L (3.5-5.1)
--- NOTE | 2017-09-20 07:30 | NUR ---
BELT BACK OPERATOR NOTES A/O X2, FORGETFUL, APPEARS ANXIOUS. DENIES SOB, ON TELE MONITOR SINUS RHYTHM HR90. IVC IN RIGHT AC, IVF INFUSING AT 75ML/HR. SAFETY MEASURES IN PLACE, REMINDERS TO USE CALL LIGHT PLACE WITHIN REACH. BED LOW AND LOCKED, BED ALARM ON. WILL CONT TO MONITOR.
[2017-09-20 08:00] VITALS: BP 104/82
[2017-09-20] MEDS: SULFAMETHOXAZOLE/TRIMETHOPRIM 15 ML in IV D5W 250 ML IV SCH ×3 (08:29→23:40)
[2017-09-20] MEDS: FLUCONAZOLE (100 MG) 100 MG TABLET PO SCH (08:38)
[2017-09-20] MEDS: NYSTATIN (PYXIS) 500,000 UNIT/5 ML ORAL.SUSP PO SCH ×3 (08:39→17:38)
[2017-09-20] MEDS: LORAZEPAM INJ 2 MG/ML VIAL IV PRN (11:01)
--- NOTE | 2017-09-20 11:02 | NUR ---
PATIENT ATTEMPTING TO GET UP AND WALK FROM BED UNASSISTED, BALANCE UNSTEADY. REMINDED MULTIPLE TIMES. APPEARS ANXIOUS AND UNCOOPERATIVE. DENIES PAIN, OXYGEN 93% ON SUPPLEMENTAL OXYGEN AT 5L VIA NC WITH NO SOB. ATIVAN 1MG IV PRN, WILL REASSESS.
[2017-09-20 12:00] VITALS: BP 120/68
[2017-09-20] MEDS: LEVOFLOXACIN (750 MG) 750 MG TABLET PO SCH (12:44)
[2017-09-20 12:56] LABS: ABG BASE EXCESS -4.5 mmol/L; ABG OXYGEN SATURATION 85.4 % (92.0-98.5); ABG PCO2 28.5 mmHg (35.0-45.0); ABG PO2 52.6 mmHg (75.0-100.0); AaDO2 235.8 mmHg; COHb 0.5 % (0.5-1.5); MetHb 0.5 % (0.0-1.5); O2Hb 84.5 % (94.0-97.0); SITE, ABG Left Brachial; VENT MODE, BG NASAL CANNULA
[2017-09-20] MEDS ORDERED: ENSURE ENLIVE 237 ML LIQUID (VANILLA) PO SCH (13:00)
--- NOTE | 2017-09-20 13:25 | NUR ---
ABG RESULTED pO2 52.6 [address] MASK 50% PLACE BY RT. NOTIFIED DR. ABARCA WITH NO NEW ORDERS AT THIS TIME. Addendum: 09/20/17 at 1501 by MARIA TERESA HUBBARD RN CLARIFICATION NOTES ABOVE FiO2 50%, OXYGEN 15L
--- NOTE | 2017-09-20 14:25 | NUR ---
ENSURE SUPPLEMENT NON ADMINISTERED, NOT AVAILABLE AT THIS TIME. INFORMED DIETARY DEPT.
--- NOTE | 2017-09-20 14:34 | NUR ---
RN REPORTED PATIENT FOUND SITTING ON THE FLOOR, PATIENT DID NOT USE CALL WITHIN REACH. PATIENT WAS ASSISTED BACK TO BED BY 2 NURSES. PATIENT ABLE TO STOOD UP AND PIVOT HERSELF WITH ASSISTANCE BACK TO BED WITH NO C/O PAIN. SKIN BODY ASSESSMENT WAS DONE BY RN, NO NOTED INJURY, DENIES PAIN. REMINDERS TO USE CALL LIGHT WITHIN REACH, INFORMED DR. DEBBY YANCEY WITH NO NEW ORDERS AT THIS TIME. CHARGE NURSE IS AWARE.
--- NOTE | 2017-09-20 15:01 | NUR ---
PATIENT REMOVING HER MASK, EDUCATED AND TEACHING PROVIDED, RISK AND BENEFITS EXPLAINED ABOUT USING MASK. PATIENT CONTINUOUS BEING NON COMPLIANT WITH TREATMENT. WILL PLACE 1:1 SITTER, CHARGE NURSE INFORMED.
--- NOTE | 2017-09-20 18:07 | NUR ---
HAND OR MACHINE PASTER CLOSING NOTES S/P FALL TODAY, VS REMAINS STABLE, OXYGEN WAS TITRATED TO 6L VIA NC BY RT, PATIENT TOLERATING WELL WITH NO SOB. APPEARS CALM AT THIS TIME, FAMILY AT THE BEDSIDE. POOR APPETITE, PROVIDED NUTRITIONAL ENSURE DRINK. SAFETY MEASURES IN PLACE, CALL LIGHT WITHIN REACH, BED LOW AND LOCKED, SIDE RAIL UP X2, BED ALARM AT ALL TIMES. POSSIBLE BRONCHOSCOPY PER DR. ABARCA. WILL ENDORSE TO ONCOMING RN.
[2017-09-20] MEDS: ACYCLOVIR 200 MG CAPSULE PO SCH (18:44)
[2017-09-20] MEDS: ENSURE ENLIVE 237 ML LIQUID (VANILLA) PO SCH (18:47)
--- NOTE | 2017-09-20 19:30 | NUR ---
COLD ROLLER NOTES ON BED A/O X2-3,WITH PERIODS OF CONFUSION,S/P FALL ON DAYTIME,SITTER AT BEDSIDE.SALINE LOCK RIGHT AC INTACT AND PATENT.IVF INFUSING AT 75ML/HR RATE.CALL LIGHT IN REACH.WILL CONTINUE TO MONITOR.
[2017-09-20] MEDS: CEFTRIAXONE 1 G in IV NS 0.9% 50 ML IV SCH (19:50)
[2017-09-20 20:00] VITALS: BP 99/66
[2017-09-20] MEDS: ENOXAPARIN SODIUM 40 MG/0.4 ML DISP.SYRIN SQ SCH (21:00)
--- NOTE | 2017-09-20 23:00 | NUR ---
METAL DOOR ASSEMBLER NOTES CALM AND QUIET ON BED,SITTER AT BEDSIDE.
[2017-09-21] VITALS: BP 99/57
--- NOTE | 2017-09-21 03:00 | NUR ---
BENCH BORING MACHINE OPERATOR NOTES SLEEPING,NO DISTRESS
[2017-09-21 04:00] VITALS: BP 96/49
[2017-09-21] MEDS: DEXAMETHASONE SOD PHOSPHATE 10 MG/ML VIAL IV SCH ×4 (05:28→23:13)
--- NOTE | 2017-09-21 06:00 | NUR ---
WATER OPERATOR NOTES CALM AND QUIET THRU OUT SHIFT.IVF INFUSING,SITE REMAINS PATENT ON RIGHT AC.PLAN BRONCHOSCOPY AFTER MD EXPLAIN RISK AND BENEFITS OF HAVING THE PROCEDURE.LATEST BP 101/61,PULSE-79.IN NO ACUTE DISTRESS.WILL ENDORSE TO DAY NURSE FOR DENY.
[2017-09-21 08:00] VITALS: BP 107/69
[2017-09-21] MEDS: IPRATROPIUM NEB FS 0.5 MG/2.5 ML AMPUL.NEB NEB SCH ×4 (08:09→19:39)
[2017-09-21] MEDS: ALBUTEROL FS 2.5 MG/0.5 ML VIAL.NEB NEB SCH ×4 (08:09→19:39)
[2017-09-21] MEDS: NYSTATIN (PYXIS) 500,000 UNIT/5 ML ORAL.SUSP PO SCH ×3 (08:46→16:52)
[2017-09-21] MEDS: ENSURE ENLIVE 237 ML LIQUID (VANILLA) PO SCH ×3 (08:46→16:53)
[2017-09-21] MEDS: FLUCONAZOLE (100 MG) 100 MG TABLET PO SCH (08:46)
[2017-09-21] MEDS: ACYCLOVIR 200 MG CAPSULE PO SCH ×2 (08:51→16:52)
--- NOTE | 2017-09-21 08:54 | NUR ---
HEALTHCARE RECEPTIONIST NOTES PATIENT IS A/O X2, OXYGEN AT 2L VIA NC WITH NO SOB. SINUS RHYTHM HR 83. GOOD APPETITE THIS MORNING 75% OF HER BREAKFAST. MUMBLES WORDS CONSTANTLY. IVC IN RIGHT AC DISLODGED, WILL RE INSERT. 1:1 SITTER AT THE BED, SAFETY MEASURES IN PLACE. CALL LIGHT WITHIN REACH. BED ALARM ON. WILL CONT TO MONITOR.
[2017-09-21] MEDS: SULFAMETHOXAZOLE/TRIMETHOPRIM 15 ML in IV D5W 250 ML IV SCH ×3 (09:19→23:12)
--- NOTE | 2017-09-21 10:23 | NUR ---
SEEN BY DR. ABARCA TODAY, ORDERED NPO MIDNIGHT, FOR BRONCHOSCOPY TOMORROW AFTERNOON PER MD.
[2017-09-21 10:30] LABS: HEMATOCRIT 38 % (33-45); HEMOGLOBIN 12.5 g/dL (11.5-14.8); LYMPHOCYTES # (AUTO) 0.3 /CMM (0.8-4.8); LYMPHOCYTES % (AUTO) 4.2 % (20.0-44.0); MEAN CORPUSCULAR HGB CONC 33 g/dl (31.0-36.0); MEAN CORPUSCULAR VOLUME 86 fL (82-100); MONOCYTES # (AUTO) 0.1 /CMM (0.1-1.30); MONOCYTES % (AUTO) 1.6 % (2.0-12.0); NEUTROPHILS # (AUTO) 6.1 /CMM (1.8-8.9); NEUTROPHILS % (AUTO) 94.2 % (43.0-81.0); PLATELET COUNT (AUTO) 331 /CMM (150-450); RDW COEFFICIENT OF VARIATION 15.6 (11.5-15.0); WHITE BLOOD COUNT (AUTO) 6.5 K/uL (4.3-11.0)
[2017-09-21 10:47] LABS: CREATININE 0.7 mg/dL (0.6-1.3); PHOSPHORUS 3.7 mg/dL (2.5-4.9); POTASSIUM 3.7 mmol/L (3.5-5.1)
[2017-09-21] MEDS: HYDROMORPHONE INJ 0.5 MG/0.5 ML SYRINGE IV PRN ×3 (11:49→23:13)
[2017-09-21] MEDS: LEVOFLOXACIN (750 MG) 750 MG TABLET PO SCH (11:53)
[2017-09-21] MEDS: IV NS 0.9% 1,000 ML IV PRN (15:11)
--- NOTE | 2017-09-21 18:17 | NUR ---
CRA CLOSING NOTES ALERT AND ORIENTED X 2/3, VS REMAINS STABLE, OXYGEN ON 6L VIA NC BY RT, PATIENT TOLERATING WELL WITH NO SOB. APPEARS CALM AT THIS TIME. POOR APPETITE, PROVIDED NUTRITIONAL ENSURE DRINK. SAFETY MEASURES IN PLACE, CALL LIGHT WITHIN REACH, BED LOW AND LOCKED, SIDE RAIL UP X2, BED ALARM AT ALL TIMES. PATIENT CONSENT FORM FOR BRONCHOSCOPY IS IN CHART SIGNED. PATIENT WILL BE NPO AFTER MIDNIGHT. WILL ENDORSE TO INCOMING RN.
--- NOTE | 2017-09-21 19:30 | NUR ---
MS RN NOTE: PATIENT RESTING IN BED, NO ACUTE DISTRESS NOTED. BREATHING EVEN AND UNLABORED, NO SOB NOTED. OXYGEN 6LPM VIA NC IN PLACE, O2 SAT 99%. IV TO RFA IN PLACE, INFUSING NS AT 75 ML/HR. SITTER AT BEDSIDE. BED LOCKED AND IN LOWEST POSITION, CALL LIGHT IN REACH. WILL CONTINUE TO MONITOR.
[2017-09-21 20:00] VITALS: BP 100/62
[2017-09-21] MEDS: ENOXAPARIN SODIUM 40 MG/0.4 ML DISP.SYRIN SQ SCH (21:00)
[2017-09-21] MEDS: CEFTRIAXONE 1 G in IV NS 0.9% 50 ML IV SCH (21:21)
--- NOTE | 2017-09-21 23:25 | NUR ---
MS RN NOTE: PATIENT COMPLAINS OF GENERALIZED PAIN 8/10, DILAUDID 0.5MG IV GIVEN PER MD ORDER. WILL CONTINUE TO MONITOR.
[2017-09-22] VITALS (22 sets, daily range): BP systolic 94–131; BP diastolic 64–93
[2017-09-22] MEDS: LORAZEPAM INJ 2 MG/ML VIAL IV PRN ×2 (00:16→12:31)
--- NOTE | 2017-09-22 00:25 | NUR ---
MS RN NOTE: PATIENT ANXIOUS AND RESTLESS, ATIVAN 1MG IV GIVEN PER MD ORDER. WILL CONTINUE TO MONITOR.
--- NOTE | 2017-09-22 06:10 | NUR ---
MS RN NOTE: PATIENT RESTING IN BED, NO ACUTE DISTRESS NOTED. BREATHING EVEN AND UNLABORED, NO SOB NOTED. OXYGEN 6LPM VIA NC IN PLACE, O2 SAT 99%. IV TO RFA IN PLACE, INFUSING NS AT 75 ML/HR. SITTER AT BEDSIDE. BED LOCKED AND IN LOWEST POSITION, CALL LIGHT IN REACH. WILL ENDORSE TO DAY NURSE TO CONTINUE WITH PLAN OF CARE.
[2017-09-22] MEDS: DEXAMETHASONE SOD PHOSPHATE 10 MG/ML VIAL IV SCH ×4 (06:13→23:30)
[2017-09-22] MEDS: IV NS 0.9% 1,000 ML IV PRN ×2 (06:13→23:30)
[2017-09-22 06:16] LABS: HEMATOCRIT 34 % (33-45); HEMOGLOBIN 11.6 g/dL (11.5-14.8); LYMPHOCYTES # (AUTO) 0.3 /CMM (0.8-4.8); LYMPHOCYTES % (AUTO) 4.4 % (20.0-44.0); MEAN CORPUSCULAR HGB CONC 34 g/dl (31.0-36.0); MEAN CORPUSCULAR VOLUME 87 fL (82-100); MONOCYTES # (AUTO) 0.1 /CMM (0.1-1.30); MONOCYTES % (AUTO) 1.4 % (2.0-12.0); NEUTROPHILS # (AUTO) 7.2 /CMM (1.8-8.9); NEUTROPHILS % (AUTO) 94.2 % (43.0-81.0); PLATELET COUNT (AUTO) 317 /CMM (150-450); RED BLOOD CELL COUNT(AUTO) 3.91 MIL/uL (4.0-5.2); WHITE BLOOD COUNT (AUTO) 7.6 K/uL (4.3-11.0)
[2017-09-22 06:53] LABS: CALCIUM, SERUM 8.5 mg/dL (8.5-10.1); CREATININE 0.7 mg/dL (0.6-1.3); PHOSPHORUS 3.4 mg/dL (2.5-4.9); POTASSIUM 4.1 mmol/L (3.5-5.1)
--- NOTE | 2017-09-22 07:30 | NUR ---
MS RN NOTES PATIENT IS A/O X2, FORGETFUL. OXYGEN AT 6L VIA NC WITH NO SOB. CURRENTLY NPO, FOR PROCEDURE- BRONCHOSCOPY TODAY. SAFETY MEASURES IN PLACE. CALL LIGHT WITHIN REACH. BED ALARM ON. 1:1 SITTER AT THE BEDSIDE. WILL CONT TO MONITOR.
[2017-09-22] MEDS: ALBUTEROL FS 2.5 MG/0.5 ML VIAL.NEB NEB SCH ×4 (07:37→19:47)
[2017-09-22] MEDS: IPRATROPIUM NEB FS 0.5 MG/2.5 ML AMPUL.NEB NEB SCH ×4 (07:37→19:47)
[2017-09-22] MEDS: ENSURE ENLIVE 237 ML LIQUID (VANILLA) PO SCH ×3 (08:00→17:09)
[2017-09-22] MEDS: SULFAMETHOXAZOLE/TRIMETHOPRIM 15 ML in IV D5W 250 ML IV SCH ×3 (08:38→23:30)
[2017-09-22] MEDS: FLUCONAZOLE (100 MG) 100 MG TABLET PO SCH (09:00)
[2017-09-22] MEDS: NYSTATIN (PYXIS) 500,000 UNIT/5 ML ORAL.SUSP PO SCH ×3 (09:00→17:08)
[2017-09-22] MEDS: ACYCLOVIR 200 MG CAPSULE PO SCH ×2 (09:00→17:09)
--- NOTE | 2017-09-22 10:37 | NUR ---
SRIDEVI/GRIS RECOMMEND MULTIVITAMINS AND APPETITE STIMULANT, NOTIFIED RAY/CJ AND HE'S AWARE ALSO FOLLOW UP HOME MEDICATIONS FOR REVIEW WITH RAY/CJ.
[2017-09-22] MEDS: LEVOFLOXACIN (750 MG) 750 MG TABLET PO SCH (12:00)
--- NOTE | 2017-09-22 12:39 | NUR ---
PATIENT REFUSED TO BE CHANGED DIAPER, WET AND SOAK WITH URINE, APPEARS ANXIOUS. ATIVAN 1MG IV PRN GIVEN FOR ANXIETY, 1:1 SITTER AT THE BEDSIDE. WILL REASSESS.
--- NOTE | 2017-09-22 14:47 | NUR ---
URINE SPECIMEN COLLECTED FOR TEST, SEND TO LAB ORDERED. PATIENT IS TAKEN TO OR VIA BED FOR PROCEDURE-BRONCHOSCOPY.
[2017-09-22] MEDS ORDERED: FENTANYL PF 100MCG/2ML AMPUL ONE (15:03)
[2017-09-22] MEDS ORDERED: SUCCINYLCHOLINE CHLORIDE 20 MG/ML VIAL ONE (15:14)
--- NOTE | 2017-09-22 15:54 | NUR ---
PT. 46 Y OLD FEMALE REC. ORALLY INTUBATED ETT # 7.0 @ 21 CM SECURED AT LIP LINE AND PLACED ON VENT WITH NOTED SETTINGS, ALARMS ARE SET AND FUNCTIONAL, B/S DIM./CLEAR BILATERALLY EQUAL CHEST RISE NOTED. VENT PLUGGED INTO REDOUTLET. CONTINUE FOR MONITOR AND CARE AMBU BAG REMAIN AT THE BEDSIDE. Addendum: 09/22/17 at 1558 by RIMMA DORADO RT Amended: Links added.
[2017-09-22] MEDS: PROPOFOL 100 ML IV PRN ×2 (16:56→23:30)
--- NOTE | 2017-09-22 16:56 | NUR ---
PATIENT TRANSFERRED TO ICU UNIT POST BRONCHOSCOPY PROCEDURE. REPORT GIVEN TO FELA KHAN. PATIENT'S PERSONAL BELONGINGS SENT TO ICU, AND REVIEWED WITH FELA KHAN.
[2017-09-22 17:08] LABS: ABG BASE EXCESS -5.1 mmol/L; ABG OXYGEN SATURATION 97.3 % (92.0-98.5); ABG PCO2 36.3 mmHg (35.0-45.0); ABG PH 7.353 (7.350-7.450); ABG PO2 119.6 mmHg (75.0-100.0); AaDO2 268.3 mmHg; COHb 0.1 % (0.5-1.5); MetHb 0.5 % (0.0-1.5); O2Hb 96.7 % (94.0-97.0); PEEP,BG 5 cm H2O; SITE, ABG Left Radial; VT, ABG 450 mL
--- NOTE | 2017-09-22 18:30 | NUR ---
PATIENT TRANSFERRED FROM RECOVERY AT 1600. S/P BRONCHOSCOPY BY DR. ABARCA. INTUBATED =CONNECTED TO VENT BY RT. INITIAL ABG RESULTS REPORTED TO DR. ABARCA. NO VENT CHANGES-TITRATED DOWN FIO2 40%. SR 60'S ON MONITOR. BP STABLE. PATIENT EASILY AROUSABLE TO TOUCH AT THIS TIME-DIPRIVAN DRIP ORDER RECEIVED FROM DR. ABARCA. LEFT FOREARM IV STARTED G.20. OGT TUBE FG. 16 INSERTED FOR MEDS-CONFIRMED PLACEMENT IN STOMACH WITH FELA MELENDEZ. PER MD-DO NOT INSERT FC AT THIS TIME. PATIENT PLAN FOR VENT WEANING IN AM. PATIENT BP REMAINS STABLE. PATIENT SON UPDATED WITH CONDITION AND PLAN OF CARE.
--- NOTE | 2017-09-22 19:25 | NUR ---
RN NURSERY RCD PT S/P BRONCHOSCOPY; PT IS SEDATED ON PROPOFOL AT 30 MGK/KG/MIN; PT HAS BL SOFT WRIST RESTRAINTS PT EASILY AWAKENS. NSR ON MONITOR. INTUBATED 7.0 @ 21 W/VENT SETTINGS AC 12 450 40% +5; PT HAS THICK WHITE SECRETIONS. OG TUBE CLAMPED. SKIN INTACT. PLAN FOR SIMV TOMORROW.
--- NOTE | 2017-09-22 19:30 | NUR ---
[employer] ADVOCATE PT NOTED TO BE OPENING EYES AND MOVING ALL EXTREMITIES DESPITE BEING ON BLSW RESTRAINTS. PROPOFOL INCREASED TO 35 MCG/KG/HR. CONTINUE TO MONITOR. Addendum: 09/22/17 at 2310 by TOMMY HERNANDES RN PROPOFOL MCG/KG/MIN
--- NOTE | 2017-09-22 19:40 | NUR ---
DITCH DIGGER PT NOTED TO BE WAKING UP MORE. PROPOFOL INCREASED TO 40 MCG/KG/HR. CONTINUE TO MONITOR. Addendum: 09/22/17 at 2311 by TOMMY HERNANDES RN PROPOFOL MCG/KG/MIN
--- NOTE | 2017-09-22 20:00 | NUR ---
GLOBAL CLINICAL LEADER PT FULLY AWAKE AFTER ADLs RENDERED; PROPOFOL INCREASED TO 50 MCG/KG/HR. [facility] RESTRAINTS REMAIN IN PLACE FOR PT SAFETY. CONTINUE TO MONITOR. Addendum: 09/22/17 at 2311 by TOMMY HERNANDES RN PROPOFOL MCG/KG/MIN
[2017-09-22] MEDS: CEFTRIAXONE 1 G in IV NS 0.9% 50 ML IV SCH (20:01)
[2017-09-22] MEDS: ENOXAPARIN SODIUM 40 MG/0.4 ML DISP.SYRIN SQ SCH (21:31)
[2017-09-23] VITALS (45 sets, daily range): BP systolic 99–119; BP diastolic 57–83
[2017-09-23 04:25] LABS: HEMATOCRIT 36 % (33-45); HEMOGLOBIN 12.2 g/dL (11.5-14.8); LYMPHOCYTES # (AUTO) 0.2 /CMM (0.8-4.8); LYMPHOCYTES % (AUTO) 2.4 % (20.0-44.0); MEAN CORPUSCULAR HGB CONC 34 g/dl (31.0-36.0); MEAN CORPUSCULAR VOLUME 87 fL (82-100); MONOCYTES % (AUTO) 0.4 % (2.0-12.0); NEUTROPHILS # (AUTO) 8.9 /CMM (1.8-8.9); NEUTROPHILS % (AUTO) 97.2 % (43.0-81.0); PLATELET COUNT (AUTO) 344 /CMM (150-450); RDW COEFFICIENT OF VARIATION 16.2 (11.5-15.0); RED BLOOD CELL COUNT(AUTO) 4.14 MIL/uL (4.0-5.2); WHITE BLOOD COUNT (AUTO) 9.2 K/uL (4.3-11.0)
[2017-09-23 04:41] LABS: CALCIUM, SERUM 8.9 mg/dL (8.5-10.1); CREATININE 0.7 mg/dL (0.6-1.3); MAGNESIUM 2.3 mg/dL (1.8-2.4); PHOSPHORUS 3.4 mg/dL (2.5-4.9); POTASSIUM 4.1 mmol/L (3.5-5.1)
--- NOTE | 2017-09-23 05:28 | NUR ---
RT PT RECEIVED INTUBATED WITH 7.0 @21 CM LIP ON [facility] VENT WITH NOTED SETTINGS. ETT PATENT AND SECURE VIA ANCHOR FAST. PAINTER BARREL DONE. AMBU BAG AT [facility].VENT TO RED OUTLET. ALARMS SET AND AUDIBLE. NO SOB OR DISTRESS NOTED ON SHIFT. Addendum: 09/23/17 at 0531 by BRITT HANCOCK RT Amended: Links added.
[2017-09-23] MEDS: DEXAMETHASONE SOD PHOSPHATE 10 MG/ML VIAL IV SCH ×4 (05:31→23:56)
[2017-09-23] MEDS: PROPOFOL 100 ML IV PRN (05:31)
--- NOTE | 2017-09-23 06:45 | NUR ---
BOTTOM STEEP TENDER PT TURNED AND REPOSITIONED Q2HRS; PROVIDED ELLE CARE NEEDED. PT MAINTAINED ON PROPOFOL AT 50 MCG/KG/MIN; PT NOTES WITH RANDOM EPISODES OF WAKING UP AND OVER BREATHING THE VENT; BL SOFT WRIST RESTRAINTS REMAIN IN PLACE FOR PT SAFETY.
--- NOTE | 2017-09-23 07:10 | NUR ---
MAINTENANCE TECH- INITIAL NOTE RECEIVED PT ORALLY INTUBATED ETT 7.0, 21 CM @ THE LIP. RESPIRATIONS EVEN AND UNLABORED. PT AWAKE, ALERT, FOLLOWS COMMANDS AND APPEARS ANXIOUS, RESTLESS. BUE SOFT WRIST RESTRAINTS IN PLACE FOR SAFETY. BEDSIDE MONITOR REVEALS SINUS RHYTHM. OGT PRESENT AND CLAMPED. RFA 22G RUNNING NS @ 75 ML/HR AND LFA 20G RUNNING DIPRIVAN @ 50 MCG/MIN. BOTH IVS FLUSHED, PATENT, INTACT AND FREE OF REDNESS, SWELLING AND INFLAMMATION. WILL CONTINUE TO MONITOR.
[2017-09-23] MEDS: ENSURE ENLIVE 237 ML LIQUID (VANILLA) PO SCH ×3 (08:00→16:24)
--- NOTE | 2017-09-23 08:10 | NUR ---
CLIENT PROJECT COORDINATOR- DIPRIVAN TITRATED DOWN TO 10 MCG/MIN FOR WEANING PROCESS. 0820- DIPRIVAN TURNED OFF. PT PLACED OM SIMV MODE BY RT. 1000- PT EXTUBATED AND PLACED ON 5L NC BY RT. TOLERATING WELL. NO SOB OR DISTRESS NOTED. WILL CONTINUE TO MONITOR.
[2017-09-23] MEDS: IPRATROPIUM NEB FS 0.5 MG/2.5 ML AMPUL.NEB NEB SCH ×4 (08:15→19:30)
[2017-09-23] MEDS: ALBUTEROL FS 2.5 MG/0.5 ML VIAL.NEB NEB SCH ×4 (08:15→19:30)
--- NOTE | 2017-09-23 08:24 | NUR ---
PER MD ORDER PATIENT PLACED ON VENT WEANING MODE. PATIENT AWAKE, RESPONSIVE, NO SOB AT THIS TIME. VENT ALARMS CHECKED + AUDIBLE. B/S CLEAR Addendum: 09/23/17 at 1011 by ARTHUR WATT RT Amended: Links added.
[2017-09-23] MEDS: ACYCLOVIR 200 MG CAPSULE PO SCH ×3 (09:00→16:26)
[2017-09-23] MEDS: NYSTATIN (PYXIS) 500,000 UNIT/5 ML ORAL.SUSP PO SCH ×4 (09:00→16:26)
[2017-09-23] MEDS: FLUCONAZOLE (100 MG) 100 MG TABLET PO SCH ×2 (09:00→09:29)
[2017-09-23] MEDS ORDERED: DC PROPOFOL WHEN EXTUBATED XX PRN (09:00)
[2017-09-23] MEDS: SULFAMETHOXAZOLE/TRIMETHOPRIM 15 ML in IV D5W 250 ML IV SCH ×3 (09:10→23:55)
[2017-09-23 09:54] LABS: ABG BASE EXCESS -4.6 mmol/L; ABG OXYGEN SATURATION 92.8 % (92.0-98.5); ABG PCO2 29.9 mmHg (35.0-45.0); ABG PH 7.416 (7.350-7.450); ABG PO2 70.8 mmHg (75.0-100.0); COHb 0.3 % (0.5-1.5); MetHb 0.6 % (0.0-1.5); PEEP,BG 5 cm H2O; SITE, ABG Right Radial; VT, ABG 450 mL
--- NOTE | 2017-09-23 10:00 | NUR ---
RT POST ABG RESULTS PER DR ABARCA PATIENT EXTUBATED AND PLACED ON 5L N/C DIMPLE WELL. PATIENT AWAKE + ALERT WITH NO SOB NOTED.
[2017-09-23] MEDS ORDERED: RILPIVIRINE PO SCH (11:00)
[2017-09-23] MEDS ORDERED: LEVOFLOXACIN (750 MG) 750 MG TABLET PO SCH (11:00)
[2017-09-23] MEDS ORDERED: Medication Not On Formulary EA (Emtricitabine/Tenofov Alafenam (Descovy 200-25 mg Tablet PO SCH (11:00)
[2017-09-23] MEDS ORDERED: FLUCONAZOLE 200 MG PO SCH (11:00)
[2017-09-23] MEDS ORDERED: [UNRECOGNIZED DRUG - OTHER] PO SCH (11:00)
[2017-09-23] MEDS ORDERED: DOLUTEGRAVIR PO SCH (11:00)
[2017-09-23] MEDS: LORAZEPAM INJ 2 MG/ML VIAL IV PRN ×2 (11:01→18:49)
--- NOTE | 2017-09-23 11:33 | NUR ---
RT PATIENT AWAKE, ALERT, ZERO SOB. REFUSED RESP HHN TX. RN AWARE
[2017-09-23] MEDS: LEVOFLOXACIN (750 MG) 750 MG TABLET PO SCH (12:26)
[2017-09-23] MEDS: HYDROMORPHONE INJ 0.5 MG/0.5 ML SYRINGE IV PRN ×3 (12:27→21:03)
--- NOTE | 2017-09-23 20:19 | NUR ---
PT IS AWAKE ON NC 4L. O2 SAT 95%. PT REF BREATHING TX AT THIS TIME. RN AWARE. WILL CONTINUE.
[2017-09-23] MEDS: CEFTRIAXONE 1 G in IV NS 0.9% 50 ML IV SCH (20:50)
[2017-09-23] MEDS: ENOXAPARIN SODIUM 40 MG/0.4 ML DISP.SYRIN SQ SCH (20:51)
[2017-09-23] MEDS: IV NS 0.9% 1,000 ML IV PRN (21:12)
[2017-09-24] VITALS (35 sets, daily range): BP systolic 97–123; BP diastolic 43–86
[2017-09-24] MEDS: oxyCODONE/APAP (5/325 MG) 1 UDTAB TABLET PO PRN (00:18)
[2017-09-24 04:44] LABS: BASOPHILS % (AUTO) 0.1 % (0.0-2.0); EOSINOPHILS % (AUTO) 0.1 % (0.0-6.0); HEMATOCRIT 33 % (33-45); HEMOGLOBIN 11.5 g/dL (11.5-14.8); LYMPHOCYTES # (AUTO) 0.2 /CMM (0.8-4.8); LYMPHOCYTES % (AUTO) 2.5 % (20.0-44.0); MEAN CORPUSCULAR HGB CONC 35 g/dl (31.0-36.0); MEAN CORPUSCULAR VOLUME 87 fL (82-100); MONOCYTES # (AUTO) 0.1 /CMM (0.1-1.30); NEUTROPHILS # (AUTO) 7.6 /CMM (1.8-8.9); NEUTROPHILS % (AUTO) 96.3 % (43.0-81.0); PLATELET COUNT (AUTO) 309 /CMM (150-450); RDW COEFFICIENT OF VARIATION 15.8 (11.5-15.0); RED BLOOD CELL COUNT(AUTO) 3.85 MIL/uL (4.0-5.2); WHITE BLOOD COUNT (AUTO) 7.9 K/uL (4.3-11.0)
[2017-09-24 05:04] LABS: CALCIUM, SERUM 8.4 mg/dL (8.5-10.1); CREATININE 0.6 mg/dL (0.6-1.3); POTASSIUM 4.7 mmol/L (3.5-5.1)
[2017-09-24] MEDS: DEXAMETHASONE SOD PHOSPHATE 10 MG/ML VIAL IV SCH ×4 (05:24→23:29)
[2017-09-24] MEDS: HYDROMORPHONE INJ 0.5 MG/0.5 ML SYRINGE IV PRN ×3 (05:25→18:58)
--- NOTE | 2017-09-24 06:30 | NUR ---
MANUFACTURING SYSTEMS ENGINEER - PT. WAS AWAKE FOR MOST PART OF THE NIGHT. PT.IS CURRENTLY C/O KELSEY. DILAUDID 0.5MG-IVP WAS ADM. AT 21:00 & 05:30-THIS AM. PT.WAS ADM. A PARTIAL BEDBATH DUE TO URINE INC./DIAPERED. PT. REMAINS ON O2/3L/NC & IS RHONCHUS TO ALL LOBES. O2 SATS ARE >93%. POOR APPETITE, UP TO 4AM. PT. ATE HER FOOD FROM HOME & WAS RAVENOUS. AFEBRILE. PT. ALSO REC'D ATIVAN-ONE MG-SLOW IVP AT THIS TIME OF NOTATION. ALL PULSES PALPABLE X 4 EXT. PIV'S X 2 ARE PATENT TO FLUSH. 0.9%NS INFUSING AT 75 CC/HR. BRONCHIAL WASHINGS ARE STILL PENDING. REPORT ENDORSED TO DARLENE CHAHAL. CONT.POC.
--- NOTE | 2017-09-24 07:10 | NUR ---
FEED RESEARCH AIDE- INITIAL NOTE RECEIVED PT A/O X3. ON 3L NC, RESPIRATIONS EVEN & UNLABORED, NO SOB OR DISTRESS PRESENT. BEDSIDE MONITOR REVEALS SINUS RHYTHM. TWO IVS PRESENT: RFA 22G HL AND LFA 20G RUNNING NS @ 75 ML/HR. BOTH IVS FLUSHED, PATENT, INTACT AND FREE OF REDNESS, SWELLING AND INFLAMMATION. WILL CONTINUE TO MONITOR.
[2017-09-24] MEDS: LORAZEPAM INJ 2 MG/ML VIAL IV PRN (07:26)
[2017-09-24] MEDS: ALBUTEROL FS 2.5 MG/0.5 ML VIAL.NEB NEB SCH ×4 (07:48→19:54)
[2017-09-24] MEDS: IPRATROPIUM NEB FS 0.5 MG/2.5 ML AMPUL.NEB NEB SCH ×4 (07:48→19:54)
[2017-09-24] MEDS: SULFAMETHOXAZOLE/TRIMETHOPRIM 15 ML in IV D5W 250 ML IV SCH ×3 (08:25→23:29)
[2017-09-24] MEDS: ENSURE ENLIVE 237 ML LIQUID (VANILLA) PO SCH ×3 (08:26→16:43)
[2017-09-24] MEDS: ACYCLOVIR 200 MG CAPSULE PO SCH ×2 (10:03→17:38)
[2017-09-24] MEDS: NYSTATIN (PYXIS) 500,000 UNIT/5 ML ORAL.SUSP PO SCH ×3 (10:03→17:38)
[2017-09-24] MEDS: FLUCONAZOLE (100 MG) 100 MG TABLET PO SCH (10:03)
[2017-09-24] MEDS: ESCITALOPRAM OXALATE (10 MG) 10 MG TABLET PO SCH (10:03)
[2017-09-24] MEDS ORDERED: LEVOFLOXACIN 750 MG /D5W 150ML 150 ML IV SCH (11:30)
[2017-09-24] MEDS: LEVOFLOXACIN (750 MG) 750 MG TABLET PO SCH (12:24)
[2017-09-24] MEDS: IV NS 0.9% 1,000 ML IV PRN (12:24)
--- NOTE | 2017-09-24 16:30 | NUR ---
CHEMICAL STRENGTH TESTER- PT C/O SOB & ANXIETY, SATURATING MID TO HIGH 80S. WAS PLACED ON 5L NC BY RT AT 1545. TITRATED O2 TO REACH GOAL AND PER PT COMFORT. PT PLACED ON 10L SIMPLE MASK, SATURATING 94%, STATES SOB HAS LESSENED AND APPEARS MORE COMFORTABLE. WILL CONTINUE TO MONITOR.
[2017-09-24] MEDS: CEFTRIAXONE 1 G in IV NS 0.9% 50 ML IV SCH (20:00)
[2017-09-24] MEDS: ENOXAPARIN SODIUM 40 MG/0.4 ML DISP.SYRIN SQ SCH (20:01)
--- NOTE | 2017-09-24 20:16 | NUR ---
received pt from day shift, a/o x4, follows commands, SR, on simple mask at 10L, sat well, lungs partially congested, no edema, tolerates diet, urinates in diaper, v/s stable, no pain, family at the bedside.
[2017-09-24] MEDS: HYDROCODONE/APAP 5/325MG 1 EACH TABLET PO PRN (22:38)
[2017-09-25] VITALS (28 sets, daily range): BP systolic 98–140; BP diastolic 49–84
--- NOTE | 2017-09-25 00:21 | NUR ---
pt is resting in the bed, v/s stable, no pain, pt turns and repositions by herself.
--- NOTE | 2017-09-25 04:15 | NUR ---
pt is resting in the bed, no acute distress overnight, alert, follows commands, SR, on 10L simple mask, sat well, v/s stable, no pain, pt cleaned and changed.
[2017-09-25] MEDS: HYDROCODONE/APAP 5/325MG 1 EACH TABLET PO PRN ×2 (04:56→08:54)
[2017-09-25] MEDS: DEXAMETHASONE SOD PHOSPHATE 10 MG/ML VIAL IV SCH ×3 (05:02→17:02)
--- NOTE | 2017-09-25 07:05 | NUR ---
RN INITIAL NOTES RECEIVED PT ASLEEP, EASILY AROUSABLE. NO RESPIRATORY DISTRESS NOTED. NO SOB NOTED. PT ON MASK AT 10LPM. 02 SAT 88-90S. HOB ELEVATED. IV LINES IN PLACE. IVF INFUSING. BLE ELEVATED. PT COMFORTABLE. CALL LIGHT WITHIN REACH. WILL MONITOR.
[2017-09-25] MEDS: ALBUTEROL FS 2.5 MG/0.5 ML VIAL.NEB NEB SCH ×4 (07:35→20:14)
[2017-09-25] MEDS: IPRATROPIUM NEB FS 0.5 MG/2.5 ML AMPUL.NEB NEB SCH ×4 (07:35→20:14)
[2017-09-25] MEDS: FLUCONAZOLE (100 MG) 100 MG TABLET PO SCH (08:24)
[2017-09-25] MEDS: NYSTATIN (PYXIS) 500,000 UNIT/5 ML ORAL.SUSP PO SCH ×3 (08:24→16:12)
[2017-09-25] MEDS: ACYCLOVIR 200 MG CAPSULE PO SCH ×2 (08:24→16:12)
[2017-09-25] MEDS: ESCITALOPRAM OXALATE (10 MG) 10 MG TABLET PO SCH (08:24)
[2017-09-25] MEDS: SULFAMETHOXAZOLE/TRIMETHOPRIM 15 ML in IV D5W 250 ML IV SCH ×2 (08:43→16:12)
[2017-09-25] MEDS: ENSURE ENLIVE 237 ML LIQUID (VANILLA) PO SCH ×3 (08:43→16:11)
[2017-09-25] MEDS: IV NS 0.9% 1,000 ML IV PRN ×2 (08:43→23:45)
--- NOTE | 2017-09-25 09:15 | NUR ---
RN NOTES SEEN AND EXAMINED BY DR. ABARCA. PT ON MASK AT 10LPM VIA NC. 02 SAT 88-90%. HOB ELEVATED. AWARE OF CXR RESULT. AWAITING FOR BRONCHIAL WASHING RESULT. CALLED LAB, PATHOLOGY STAFF COMES IN AT 1000. WILL CALL FOR FF UP, DR. ABARCA AWARE. WILL CONTINUE TO MONITOR.
--- NOTE | 2017-09-25 09:20 | NUR ---
RN NOTES SEEN AND EXAMINED BY RAY HASKINS NP. AWARE OF CURRENT LAB VALUES AND CXR RESULT. PT A/OX3-4. ON 02 VIA MASK AT 10LPM. O2 SAT 88-90%. HOB ELEVATED. DISCUSSED PLAN OF CARE WITH PT. WILL CONTINUE TO MONITOR.
[2017-09-25 09:43] LABS: ABG BASE EXCESS -1.5 mmol/L; ABG PCO2 32.8 mmHg (35.0-45.0); ABG PH 7.444 (7.350-7.450); ABG PO2 68.8 mmHg (75.0-100.0); COHb 0.3 % (0.5-1.5); MetHb 0.6 % (0.0-1.5); O2Hb 92.2 % (94.0-97.0); SITE, ABG Right Radial; VENT MODE, BG SIMPLE MASK
[2017-09-25 11:45] LABS: BASOPHILS # (AUTO) 0.1 /CMM (0.0-0.2); BASOPHILS % (AUTO) 1.2 % (0.0-2.0); HEMATOCRIT 34 % (33-45); HEMOGLOBIN 11.3 g/dL (11.5-14.8); LYMPHOCYTES # (AUTO) 0.2 /CMM (0.8-4.8); MEAN CORPUSCULAR HGB CONC 34 g/dl (31.0-36.0); MEAN CORPUSCULAR VOLUME 87 fL (82-100); MONOCYTES # (AUTO) 0.4 /CMM (0.1-1.30); MONOCYTES % (AUTO) 4.4 % (2.0-12.0); NEUTROPHILS # (AUTO) 8.4 /CMM (1.8-8.9); NEUTROPHILS % (AUTO) 92.4 % (43.0-81.0); PLATELET COUNT (AUTO) 338 /CMM (150-450); RDW COEFFICIENT OF VARIATION 15.9 (11.5-15.0); RED BLOOD CELL COUNT(AUTO) 3.87 MIL/uL (4.0-5.2); WHITE BLOOD COUNT (AUTO) 9.1 K/uL (4.3-11.0)
[2017-09-25 11:55] LABS: CALCIUM, SERUM 8.5 mg/dL (8.5-10.1); CREATININE 0.6 mg/dL (0.6-1.3); POTASSIUM 4.4 mmol/L (3.5-5.1)
[2017-09-25] MEDS: LEVOFLOXACIN (750 MG) 750 MG TABLET PO SCH (12:12)
--- NOTE | 2017-09-25 13:40 | NUR ---
RN NOTES CALLED PATHOLOGY, SPOKE WITH JESS REGARDING SMEAR RESULT. PER JESS, RESULT WILL BE READY BY OR THURSDAY. DR. ABARCA IN THE UNIT NOTIFIED.
[2017-09-25] MEDS: LORAZEPAM INJ 2 MG/ML VIAL IV PRN (16:12)
--- NOTE | 2017-09-25 17:35 | NUR ---
RN NOTES TRANSFERRED PT TO ROOM 114-1. PT AWAKE, A/OX4. ON MASK AT 10LPM VIA NC. NO SOB NOTED. HOB ELEVATED. 02 SAT 97%. DENIES ANY PAIN. ENDORSED TO FELA SOLOMON. TOOK OVER PT'S CARE.
--- NOTE | 2017-09-25 17:40 | NUR ---
MICHELLE RN NOTES RECEIVED PATIENT FROM ICU FROM RN ISAMAR, PATIENT ON SIMPLE MASK 10L, SATURATING 96%, AOX3, NO SIGNS OF DISTRESS, VITALS WNL, IV INFUSING FLUIDS, ON TELE MONITORING SR 65 HR, BED IN LOW AND LOCKED POSITION, CALL LIGHT WITHIN REACH, WILL CONTINUE TO MONITOR .
--- NOTE | 2017-09-25 18:26 | NUR ---
MICHELLE RN NOTES PATIENT CURRENTLY EATING DINNER, ON NASAL CANNULA TOLERATING WELL, WILL ENDORSE TO ENTRY LEVEL CIVIL ENGINEER FOR CONTINUITY OF CARE.
--- NOTE | 2017-09-25 19:30 | NUR ---
MICHELLE NOTES RECEIVED PT AWAKE ALERT OX3.OFFERS NO COMPLAINTS COUCHING SCANT OF SAMALL THICK MUCUS.
[2017-09-25] MEDS: AZITHROMYCIN 250 MG TABLET PO SCH (20:05)
[2017-09-25] MEDS: ENOXAPARIN SODIUM 40 MG/0.4 ML DISP.SYRIN SQ SCH (22:00)
[2017-09-25] MEDS: HYDROMORPHONE INJ 0.5 MG/0.5 ML SYRINGE IV PRN (23:39)
[2017-09-26] VITALS (7 sets, daily range): BP systolic 102–136; BP diastolic 59–71
[2017-09-26] MEDS: DEXAMETHASONE SOD PHOSPHATE 10 MG/ML VIAL IV SCH ×4 (00:06→17:01)
[2017-09-26] MEDS: SULFAMETHOXAZOLE/TRIMETHOPRIM 15 ML in IV D5W 250 ML IV SCH ×3 (00:06→16:07)
[2017-09-26] MEDS: HYDROMORPHONE INJ 0.5 MG/0.5 ML SYRINGE IV PRN (04:28)
--- NOTE | 2017-09-26 04:28 | NUR ---
MICHELLE NOTES SECOND DOSE OF DILAUDID IV PRN GIVEN PER PT'S REQUEST FOR HEADACHE AND GENERALIZED PAIN.
--- NOTE | 2017-09-26 06:14 | NUR ---
MICHELLE NOTES SLEPT POORLY,SWITCHING O2 MASK TO N/C FOR COMFORT.VITAL SIGNS STABLE.MONITOR SHOWS NSR.
[2017-09-26] MEDS: IPRATROPIUM NEB FS 0.5 MG/2.5 ML AMPUL.NEB NEB SCH ×4 (07:35→19:59)
[2017-09-26] MEDS: ALBUTEROL FS 2.5 MG/0.5 ML VIAL.NEB NEB SCH ×4 (07:35→19:59)
--- NOTE | 2017-09-26 08:00 | NUR ---
RT PATIENT DID NOT WANT HHN TX AT THIS TIME, WANTED TO EAT BREAKFAST. NO SOB NOTED, PATIENT AWAKE + ALERT.
[2017-09-26 08:08] LABS: BASOPHILS % (AUTO) 0.2 % (0.0-2.0); HEMATOCRIT 32 % (33-45); LYMPHOCYTES # (AUTO) 0.1 /CMM (0.8-4.8); LYMPHOCYTES % (AUTO) 1.5 % (20.0-44.0); MEAN CORPUSCULAR HGB CONC 34 g/dl (31.0-36.0); MEAN CORPUSCULAR VOLUME 87 fL (82-100); MONOCYTES # (AUTO) 0.1 /CMM (0.1-1.30); NEUTROPHILS # (AUTO) 8.7 /CMM (1.8-8.9); NEUTROPHILS % (AUTO) 97.3 % (43.0-81.0); PLATELET COUNT (AUTO) 284 /CMM (150-450); RDW COEFFICIENT OF VARIATION 16.1 (11.5-15.0); RED BLOOD CELL COUNT(AUTO) 3.67 MIL/uL (4.0-5.2)
[2017-09-26 08:18] LABS: CALCIUM, SERUM 8.2 mg/dL (8.5-10.1); CREATININE 0.5 mg/dL (0.6-1.3); POTASSIUM 4.3 mmol/L (3.5-5.1)
[2017-09-26] MEDS: NYSTATIN (PYXIS) 500,000 UNIT/5 ML ORAL.SUSP PO SCH ×3 (08:32→16:55)
[2017-09-26] MEDS: FLUCONAZOLE (100 MG) 100 MG TABLET PO SCH (08:32)
[2017-09-26] MEDS: ACYCLOVIR 200 MG CAPSULE PO SCH ×2 (08:32→16:55)
[2017-09-26] MEDS: ESCITALOPRAM OXALATE (10 MG) 10 MG TABLET PO SCH (08:32)
[2017-09-26] MEDS: ENSURE ENLIVE 237 ML LIQUID (VANILLA) PO SCH ×3 (08:34→17:07)
--- NOTE | 2017-09-26 10:14 | NUR ---
MICHELLE RN NOTE 0720: Received patient awake, A/Ox3. No respiratory distress noted. On 6LPM of O2 via NC tolerated. No c/o discomfort at this time. With PIVs intact. IVF infusing as ordered. SR 60's on the monitor. Kept call light at reach. 0820: Tolerated diet well, with Ensure. Meds given as ordered. On ATB therapy, no adverse reactions noted. 1000: S/E by [employer] MECHANIC, no new order at this time. Kept clean, warm and dry. Needs attended. No significant changes noted at this time.
[2017-09-26] MEDS: IV NS 0.9% 1,000 ML IV PRN (15:26)
[2017-09-26] MEDS: LORAZEPAM INJ 2 MG/ML VIAL IV PRN (17:07)
--- NOTE | 2017-09-26 20:00 | NUR ---
MICHELLE RN NOTES RECEIVED PTS ON BED AWAKE AND RESPONSIVE ABLE TO MAKE NEEDS KNOWN , NO SOB NO DISTRESS NOTED ON TELE SR ON THE MONITOR , ALL NEEDS ATTENDED TOO DUE MEDS GIVEN ORDERED CALL LIGHT WITHIN REACH , KEPT PTS CLEAN DRY AND COMFORTABLE.
[2017-09-26] MEDS: ENOXAPARIN SODIUM 40 MG/0.4 ML DISP.SYRIN SQ SCH (21:10)
[2017-09-26] MEDS: HYDROCODONE/APAP 5/325MG 1 EACH TABLET PO PRN (21:20)
[2017-09-27] VITALS: BP 107/73
--- NOTE | 2017-09-27 00:15 | NUR ---
nadia rn notes pts noted with episode of cofusion ,scratch the scab in the forehead cause bleeding cleanse with saline and cover with dry dressing , c/o of generalized pain dilaidid given as ordered pts remains on 02 at 6liters via nc ,sating 96%, v/s stable afebrile no sob no distress noted ,all needs attended to due meds given as ordered, frequent visual done will continue to monitor pts
[2017-09-27] MEDS: HYDROMORPHONE INJ 0.5 MG/0.5 ML SYRINGE IV PRN ×3 (00:49→22:48)
[2017-09-27] MEDS: DEXAMETHASONE SOD PHOSPHATE 10 MG/ML VIAL IV SCH ×4 (00:52→17:10)
[2017-09-27] MEDS: SULFAMETHOXAZOLE/TRIMETHOPRIM 15 ML in IV D5W 250 ML IV SCH ×3 (00:57→16:37)
[2017-09-27 04:00] VITALS: BP 106/66
--- NOTE | 2017-09-27 06:32 | NUR ---
nadia rn notes pts is non compliant to care and treatment explain risk and benifits pts still refusing care and treatment ,will endorse to rn day shift for continuity on care.v/s stable afebrile.
[2017-09-27] MEDS: ALBUTEROL FS 2.5 MG/0.5 ML VIAL.NEB NEB SCH ×4 (07:12→19:30)
[2017-09-27] MEDS: IPRATROPIUM NEB FS 0.5 MG/2.5 ML AMPUL.NEB NEB SCH ×4 (07:12→19:30)
--- NOTE | 2017-09-27 07:36 | NUR ---
MICHELLE RN NOTES RECEIVED PT IN BED, AWAKE ALERT. SITTER AT BEDSIDE. CXR CURRENTLY BEING PERFORMED. PT ON 6L O2 VIA NC. ON TELE MONITOR, NSR HR 67. PT HAS R FA AND L FA HEP LOCK. ON IV FLUIDS ORDERED. BED LOCKED AND IN LOW POSITION. CALL LIGHT WITHIN REACH. PLAN OF CARE DISCUSSED WITH PT. WILL CONTINUE TO MONITOR.
[2017-09-27 08:00] VITALS: BP 106/69
[2017-09-27] MEDS: FLUCONAZOLE (100 MG) 100 MG TABLET PO SCH (08:20)
[2017-09-27] MEDS: ESCITALOPRAM OXALATE (10 MG) 10 MG TABLET PO SCH (08:23)
[2017-09-27] MEDS: ACYCLOVIR 200 MG CAPSULE PO SCH ×2 (08:23→16:37)
[2017-09-27] MEDS: MULTIVITAMINS,THERAGRAN 1 UDTAB TABLET PO SCH (08:23)
[2017-09-27] MEDS: NYSTATIN (PYXIS) 500,000 UNIT/5 ML ORAL.SUSP PO SCH ×3 (08:23→16:37)
[2017-09-27] MEDS: HYDROCODONE/APAP 5/325MG 1 EACH TABLET PO PRN (08:26)
[2017-09-27] MEDS: ENSURE ENLIVE 237 ML LIQUID (VANILLA) PO SCH ×3 (08:29→16:22)
[2017-09-27] MEDS: IV NS 0.9% 1,000 ML IV PRN ×2 (09:37→22:48)
--- NOTE | 2017-09-27 10:27 | NUR ---
MICHELLE RN NOTES SPOKE WITH DR. ABARCA. PT ON 5L 02 VIA NC SATURATION AT 89%. MAY INCREASE TO 6L O2 IF NEEDED. CONTINUE TO MONITOR
[2017-09-27] MEDS: LORAZEPAM INJ 2 MG/ML VIAL IV PRN (11:51)
--- NOTE | 2017-09-27 11:58 | NUR ---
MICHELLE RN NOTES PT FEELS ANXIOUS. ATIVAN GIVEN ORDERED. VITAL SIGNS: 113/73. HR 103. O2 SATURATION 92%. WILL CONTINUE TO MONITOR
[2017-09-27 12:00] VITALS: BP 113/73
--- NOTE | 2017-09-27 14:28 | NUR ---
MICHELLE RN NOTES REPORTED TO RAY RN, IT PROJECT COORDINATOR THAT PT HAS EPISODES OF CONFUSION, STATING UNREALISTIC THINGS. IT PROJECT COORDINATOR STATED HE WILL CHECK ON PT. ALSO REPORTED THAT PT HAS O2 SATURATION OF 91% ON 6L O2 VIA NC. PREVIOUSLY GAVE PT ATIVAN AND NORCO. WILL CONTINUE TO MONITOR PT.
[2017-09-27 16:00] VITALS: BP 107/75
--- NOTE | 2017-09-27 17:28 | NUR ---
MICHELLE RN NOTE FAMILY AT BEDSIDE ON BREATHING TX ORDERED. ALL NEEDS ATTENDED, NOT IN ACUTE DISTRESS
--- NOTE | 2017-09-27 18:05 | NUR ---
MICHELLE RN NOTES NOTIFIED FELA BELL, STUDENT SPECIALIST AGAIN. PT ANXIOUS AND STATED SHE SEES "[employer]" OUTSIDE THE WINDOW. STUDENT SPECIALIST EXAMINED PT. STATED NO CHANGES TO BE MADE AND CONTINUE TO MONITOR PT. STUDENT SPECIALIST AWARE THAT NORCO, ATIVAN AND DILAUDID GIVEN EARLIER.
--- NOTE | 2017-09-27 18:31 | NUR ---
MICHELLE RN NOTES PT HAVING DINNER AT THIS TIME. SITTER AT BEDSIDE. ALL NEEDS ATTENDED. PT KEPT CLEAN AND DRY. CALL LIGHT WITHIN REACH. PT IN NO APPARENT DISTRESS, NO SOB NOTED. WILL CONTINUE TO MONITOR CLOSELY.
[2017-09-27 20:00] VITALS: BP 97/61
--- NOTE | 2017-09-27 20:00 | NUR ---
MICHELLE RN NOTE PT IN BED AWAKE. A/O X 3, NO SOB, NO DISTRESS OR DISCOMFORT NOTED. DENIES PAIN. DEPRESS AND QUIET. IVF NS @ 75 ML/HR INFUSING WELL, NO S/S OF INFILTRATION NOTED. SITTER AT BED SIDE. SIDE RAILS UP X 3 AND CALL LIGHT WITHIN REACH. VSS. CONTINUE TO MONITOR HER.
[2017-09-27] MEDS: ENOXAPARIN SODIUM 40 MG/0.4 ML DISP.SYRIN SQ SCH (21:59)
--- NOTE | 2017-09-27 22:48 | NUR ---
MICHELLE RN NOTE PT C/O PAIN ALL OVER 12/11, DILAUDID 0.5 MG IVP GIVEN. VSS. CONTINUE TO MONITOR HER.
--- NOTE | 2017-09-27 23:18 | NUR ---
MICHELLE RN NOTE PAIN SUBSIDED 2/10, PT FALLING ASLEEP, IVF INFUSING WELL, NO S/S OF INFILTRATION NOTED. ALL NEEDS ATTENDED.
[2017-09-28] VITALS: BP 113/72
[2017-09-28] MEDS: SULFAMETHOXAZOLE/TRIMETHOPRIM 15 ML in IV D5W 250 ML IV SCH ×4 (00:07→23:37)
[2017-09-28] MEDS: DEXAMETHASONE SOD PHOSPHATE 10 MG/ML VIAL IV SCH ×5 (00:07→23:36)
--- NOTE | 2017-09-28 02:50 | NUR ---
MICHELLE RN NOTE PT BECOME ANXIOUS AND CRYING. DENIES PAIN. ATIVAN 1 MG IVP GIVEN. SITTER AT BED SIDE. CONTINUE TO MONITOR HER.
[2017-09-28] MEDS: LORAZEPAM INJ 2 MG/ML VIAL IV PRN (02:53)
--- NOTE | 2017-09-28 03:20 | NUR ---
MICHELLE RN NOTE ANXIETY SUBSIDED. PT FALLING ASLEEP, IVF INFUSING WELL, NO S/S OF INFILTRATION NOTED.
[2017-09-28 04:00] VITALS: BP 133/74
--- NOTE | 2017-09-28 06:22 | NUR ---
MICHELLE RN NOTE PT IS NON COMPLIANT WITH CARE. REFUSING TO BE CLEANED. KEPT ON REMOVING N/C. AFTER FEW TIMES OF CONVINCING ABLE TO LET US PUT N/C ON. BUT KEPT ON REFUSING TO BE CLEANED. NO DISTRESS OR DISCOMFORT NOTED. SIDE RAILS UP X 3 AND CALL LIGHT WITHIN REACH. WILL ENDORSE TO DAY SHIFT NURSE FOR CONTINUE TO CARE. SITTER AT BED SIDE.
--- NOTE | 2017-09-28 06:26 | NUR ---
MICHELLE RN NOTE PT REFUSED LABS TO BE DRAWN X 3 TIMES.
--- NOTE | 2017-09-28 06:32 | NUR ---
MICHELLE RN NOTE TELE MONITOR LEADS CAME OFF, PT REFUSED TO BE PUT BACK ON AT THIS TIME. . WILL TRY AGAIN.
[2017-09-28 08:00] VITALS: BP 104/68
[2017-09-28] MEDS: ENSURE ENLIVE 237 ML LIQUID (VANILLA) PO SCH ×3 (08:00→17:13)
--- NOTE | 2017-09-28 08:00 | NUR ---
ICU/RN INITIAL NOTES,AM RECEIVED REPORT FROM NIGHT NURSE. PT RESTING IN BED. REFUSING TELE MONITORING. ON NASAL CANULA, 6LITERS, HUMIDIFIED 02, NO ACUTE RESPIRATORY DISTRESS NOTED. PT AAOX3, FOLLOW COMMANDS. HOWEVER REFUSING MONITORING. PIV PATENT AND INTACT, NO S/S OF INFECTION OR INFILTRATION NOTED, WILL CONTINUE TO MONITOR AND ASSESS. SITTER AT BEDSIDE. PT VERY ANXIOUS. SAFETY MEASURES TAKEN, BED IN LOW POSITION, SIDE RIALS UP, CALL LIGHT WITHIN REACH.
--- NOTE | 2017-09-28 08:00 | NUR ---
MICHELLE/RN: PLACED BACK ON TELE, SINUS TACG 108. WILL CONTINUE TO MONITOR
[2017-09-28] MEDS: NYSTATIN (PYXIS) 500,000 UNIT/5 ML ORAL.SUSP PO SCH ×3 (08:26→17:13)
[2017-09-28] MEDS: ESCITALOPRAM OXALATE (10 MG) 10 MG TABLET PO SCH (08:26)
[2017-09-28] MEDS: MULTIVITAMINS,THERAGRAN 1 UDTAB TABLET PO SCH (08:26)
[2017-09-28] MEDS: FLUCONAZOLE (100 MG) 100 MG TABLET PO SCH (08:27)
[2017-09-28] MEDS: IPRATROPIUM NEB FS 0.5 MG/2.5 ML AMPUL.NEB NEB SCH ×4 (08:27→19:30)
[2017-09-28] MEDS: ACYCLOVIR 200 MG CAPSULE PO SCH ×2 (08:27→17:13)
[2017-09-28] MEDS: ALBUTEROL FS 2.5 MG/0.5 ML VIAL.NEB NEB SCH ×4 (08:27→19:30)
[2017-09-28 09:44] LABS: CALCIUM, SERUM 8.3 mg/dL (8.5-10.1); CREATININE 0.6 mg/dL (0.6-1.3); POTASSIUM 3.6 mmol/L (3.5-5.1)
[2017-09-28 09:45] LABS: HEMATOCRIT 35 % (33-45); HEMOGLOBIN 11.8 g/dL (11.5-14.8); LYMPHOCYTES # (AUTO) 0.2 /CMM (0.8-4.8); LYMPHOCYTES % (AUTO) 1.4 % (20.0-44.0); MEAN CORPUSCULAR HGB CONC 34 g/dl (31.0-36.0); MEAN CORPUSCULAR VOLUME 86 fL (82-100); MONOCYTES # (AUTO) 0.1 /CMM (0.1-1.30); MONOCYTES % (AUTO) 0.3 % (2.0-12.0); NEUTROPHILS # (AUTO) 15.1 /CMM (1.8-8.9); NEUTROPHILS % (AUTO) 98.3 % (43.0-81.0); PLATELET COUNT (AUTO) 294 /CMM (150-450); RDW COEFFICIENT OF VARIATION 15.6 (11.5-15.0); RED BLOOD CELL COUNT(AUTO) 4.01 MIL/uL (4.0-5.2); WHITE BLOOD COUNT (AUTO) 15.4 K/uL (4.3-11.0)
[2017-09-28] MEDS: HYDROMORPHONE INJ 0.5 MG/0.5 ML SYRINGE IV PRN (11:06)
[2017-09-28 12:00] VITALS: BP 126/84
[2017-09-28 16:00] VITALS: BP_SYST 112; BP_SYST 123; BP_DIAS 50; BP_DIAS 80
--- NOTE | 2017-09-28 18:00 | NUR ---
MICHELLE/RN: PER MD ORDERS, INCENTIVE SPIROMETER GIVEN TO PT AND EDUCATED PT HOW TO USE AND THE BENEFITS. REINFORCEMENT NEEDED, WILL FOLLOW UP.
--- NOTE | 2017-09-28 18:32 | NUR ---
MICHELLE/RN: ENDING NOTES,AM REPORT WILL BE ENDORSED TO NIGHT NURSE FOR CONTINUATION OF CARE. ALL NEEDS ATTENDED TO, SAFETY MEASURES TAKEN, BED BATH GIVE. PT ABLE TO TURN AND REPOSITION SELF. INCENTIVE SPIROMETER AT BEDSIDE AND EDUCATED PT HOW TO USE AND HOW OFTEN. PT ON NASAL CANULA, NO DISTRESS. WILL CONTINUE CARE. SITTER AT BEDSIDE.
[2017-09-28 20:00] VITALS: BP 111/71
--- NOTE | 2017-09-28 20:00 | NUR ---
MICHELLE RN NOTE PT IN BED EATING HER DINNER SLOWLY. A/O X 3, NO SOB, NO DISTRESS OR DISCOMFORT NOTED. DENIES PAIN AT THIS TIME. IVF NS @ 75 ML/HR INFUSING WELL, NO S/S OF INFILTRATION NOTED. ON TELE ST HR 106. SITTER AT BED SIDE. SIDE RAILS UP X 3 AND CALL LIGHT WITHIN REACH. VSS. CONTINUE TO MONITOR HER.
[2017-09-28] MEDS: ENOXAPARIN SODIUM 40 MG/0.4 ML DISP.SYRIN SQ SCH ×2 (21:00→21:41)
[2017-09-28] MEDS: IV NS 0.9% 1,000 ML IV PRN (21:38)
[2017-09-28] MEDS: QUETIAPINE FUMARATE 25 MG TABLET PO SCH (21:39)
[2017-09-28] MEDS: HYDROCODONE/APAP 5/325MG 1 EACH TABLET PO PRN (21:42)
--- NOTE | 2017-09-28 21:42 | NUR ---
MICHELLE RN NOTE PT C/O PAIN ALL OVER 10/11. NORCO 5/325 MG PO GIVEN. IVF INFUSING WELL, NO S/S OF INFILTRATION NOTED. SITTER AT BED SIDE.
--- NOTE | 2017-09-28 22:42 | NUR ---
MICHELLE RN NOTE PT IN BED FALL ASLEEP, NO DISTRESS OR DISCOMFORT NOTED. EASILY AROUSABLE. PAIN SUBSIDED 2/10. CONTINUE TO MONITOR HER.
[2017-09-29] VITALS: BP 101/67
[2017-09-29 04:00] VITALS: BP 101/65
[2017-09-29] MEDS: DEXAMETHASONE SOD PHOSPHATE 10 MG/ML VIAL IV SCH ×3 (05:31→17:21)
--- NOTE | 2017-09-29 06:27 | NUR ---
MICHELLE RN NOTE PT IN BED ASLEEP, AROUSABLE. NO DISTRESS OR DISCOMFORT NOTED. DENIES PAIN. IVF INFUSING WELL. ON TELE SR HR 68. SIDE RAILS UP X 3 AND CALL LIGHT WITHIN REACH. SITTER AT BED SIDE. WILL ENDORSE TO DAY SHIFT NURSE FOR CONTINUE TO CARE.
[2017-09-29] MEDS: ALBUTEROL FS 2.5 MG/0.5 ML VIAL.NEB NEB SCH ×4 (07:15→19:28)
[2017-09-29] MEDS: IPRATROPIUM NEB FS 0.5 MG/2.5 ML AMPUL.NEB NEB SCH ×4 (07:15→19:28)
--- NOTE | 2017-09-29 07:30 | NUR ---
AWAKE, ALERT, ANXIOUS. VERBALIZING NEED FOR ANTI-ANXIETY MEDICATION AND ATIVAN USUALLY DOESN'T WORK WITH HER. C/O GENERALIZED BODY ACHES. WANTS PAIN MEDICATION. VSS. AFEBRILE. O2 AT 5L N/C-SPO2 - 95%.
[2017-09-29] MEDS: ENSURE ENLIVE 237 ML LIQUID (VANILLA) PO SCH ×3 (07:50→16:03)
[2017-09-29 08:00] VITALS: BP 107/76
[2017-09-29] MEDS: SULFAMETHOXAZOLE/TRIMETHOPRIM 15 ML in IV D5W 250 ML IV SCH ×2 (08:04→16:02)
[2017-09-29] MEDS: HYDROCODONE/APAP 5/325MG 1 EACH TABLET PO PRN ×3 (08:05→20:16)
[2017-09-29] MEDS: FLUCONAZOLE (100 MG) 100 MG TABLET PO SCH (08:05)
[2017-09-29] MEDS: MULTIVITAMINS,THERAGRAN 1 UDTAB TABLET PO SCH (08:05)
[2017-09-29] MEDS: ESCITALOPRAM OXALATE (10 MG) 10 MG TABLET PO SCH (08:05)
[2017-09-29] MEDS: NYSTATIN (PYXIS) 500,000 UNIT/5 ML ORAL.SUSP PO SCH ×3 (08:06→16:03)
[2017-09-29] MEDS: ACYCLOVIR 200 MG CAPSULE PO SCH ×2 (08:09→16:03)
--- NOTE | 2017-09-29 09:10 | NUR ---
S/E BY DR. ABARCA. NO NEW ORDERS GIVEN.
--- NOTE | 2017-09-29 10:45 | NUR ---
PHYSICAL THERAPY AT BEDSIDE. AGREED INITIALLY TO GET OOB THEN REFUSED AFTER SHE WAS READIED BY PT.
--- NOTE | 2017-09-29 11:15 | NUR ---
MED -SURG STATUS PER DR. IQBAL. TELEMETRY DISCONTINUED.
[2017-09-29 12:11] LABS: HEMATOCRIT 31 % (33-45); HEMOGLOBIN 10.7 g/dL (11.5-14.8); LYMPHOCYTES # (AUTO) 0.3 /CMM (0.8-4.8); LYMPHOCYTES % (AUTO) 1.8 % (20.0-44.0); MEAN CORPUSCULAR HGB CONC 35 g/dl (31.0-36.0); MEAN CORPUSCULAR VOLUME 86 fL (82-100); MONOCYTES # (AUTO) 0.1 /CMM (0.1-1.30); NEUTROPHILS # (AUTO) 13.9 /CMM (1.8-8.9); NEUTROPHILS % (AUTO) 97.2 % (43.0-81.0); PLATELET COUNT (AUTO) 266 /CMM (150-450); RDW COEFFICIENT OF VARIATION 15.6 (11.5-15.0); RED BLOOD CELL COUNT(AUTO) 3.59 MIL/uL (4.0-5.2); WHITE BLOOD COUNT (AUTO) 14.3 K/uL (4.3-11.0)
[2017-09-29 12:22] LABS: CALCIUM, SERUM 7.9 mg/dL (8.5-10.1); CREATININE 0.6 mg/dL (0.6-1.3); POTASSIUM 4.1 mmol/L (3.5-5.1)
--- NOTE | 2017-09-29 15:00 | NUR ---
C/O GENERALIZED PAIN/HEADACHE. REQUESTED FOR NORCO-GIVEN ORDERED PRN.PATIENT REFUSING 2ND ATTEMPT OF PHYSICAL THERAPY TO GET HER OOB, REFUSED TO BE REPOSITIONED AND PERSONAL HYGIENE.
[2017-09-29 16:00] VITALS: BP 113/74
[2017-09-29] MEDS: IV NS 0.9% 1,000 ML IV PRN (17:22)
--- NOTE | 2017-09-29 18:15 | NUR ---
PATIENT CALM AND COOPERATIVE AT THIS TIME. STATED FEELING LESS ANXIETY. O2 REMAINS AT 6 L N/C. SPO2-94%. ENCOURAGED DEEP BREATHING/INCENTIVE SPIROMETRY USE. HOB ELEVATED. CONTINUE WITH PLAN OF CARE.
--- NOTE | 2017-09-29 19:30 | NUR ---
MS/RN NOTES: RECEIVED PT. IN BED W/ HOB ELEVATED. A/O X 2-3 W/ PERIODS OF CONFUSION. W/ O2 @ 6LPM VIA N/C SAT. 92-93 %. PT. DOES HAVE A TENDENCY OF TAKING OUT HER N/C. EXPLAINED PT. THE IMPORTANCE OF KEEPING HER N/C " I AM AN ADULT DON'T TELL ME WHAT TO DO." HAS LFA AND RFA G #20 PATENT AND INTACT W/ NO S/S OF INFECTION/INFILTRATION NOTED. PT. SON AT BEDSIDE. CALL LIGHT W/ REACH. ALL NEEDS MEET. WILL CONTINUE TO MONITOR.
[2017-09-29 20:00] VITALS: BP 110/77
[2017-09-29] MEDS: QUETIAPINE FUMARATE 25 MG TABLET PO SCH (21:53)
[2017-09-29] MEDS: ENOXAPARIN SODIUM 40 MG/0.4 ML DISP.SYRIN SQ SCH (21:53)
[2017-09-30] MEDS: SULFAMETHOXAZOLE/TRIMETHOPRIM 15 ML in IV D5W 250 ML IV SCH ×4 (00:16→23:08)
[2017-09-30] MEDS: HYDROCODONE/APAP 5/325MG 1 EACH TABLET PO PRN ×3 (00:21→12:45)
[2017-09-30 06:10] VITALS: BP 102/70
[2017-09-30 06:45] LABS: BASOPHILS # (AUTO) 0.3 /CMM (0.0-0.2); EOSINOPHILS % (AUTO) 0.1 % (0.0-6.0); HEMATOCRIT 30 % (33-45); HEMOGLOBIN 10.9 g/dL (11.5-14.8); LYMPHOCYTES # (AUTO) 0.3 /CMM (0.8-4.8); LYMPHOCYTES % (AUTO) 1.7 % (20.0-44.0); MEAN CORPUSCULAR HGB CONC 36 g/dl (31.0-36.0); MEAN CORPUSCULAR VOLUME 86 fL (82-100); MONOCYTES # (AUTO) 0.3 /CMM (0.1-1.30); MONOCYTES % (AUTO) 1.7 % (2.0-12.0); NEUTROPHILS # (AUTO) 14.8 /CMM (1.8-8.9); NEUTROPHILS % (AUTO) 94.5 % (43.0-81.0); PLATELET COUNT (AUTO) 212 /CMM (150-450); RDW COEFFICIENT OF VARIATION 15.7 (11.5-15.0); RED BLOOD CELL COUNT(AUTO) 3.52 MIL/uL (4.0-5.2); WHITE BLOOD COUNT (AUTO) 15.7 K/uL (4.3-11.0)
[2017-09-30] MEDS: ALBUTEROL FS 2.5 MG/0.5 ML VIAL.NEB NEB SCH ×4 (07:14→21:01)
[2017-09-30] MEDS: IPRATROPIUM NEB FS 0.5 MG/2.5 ML AMPUL.NEB NEB SCH ×4 (07:14→21:01)
--- NOTE | 2017-09-30 07:33 | NUR ---
MS/RN NOTES: NO ACUTE CHANGES NOTED DURING THIS SHIFT. REPORT GIVEN TO AM NURSE FOR DENY.
[2017-09-30 07:43] LABS: CREATININE 0.5 mg/dL (0.6-1.3); POTASSIUM 3.8 mmol/L (3.5-5.1)
[2017-09-30 08:00] VITALS: BP 110/74
[2017-09-30] MEDS: IV NS 0.9% 1,000 ML IV PRN (08:18)
[2017-09-30] MEDS: LORAZEPAM INJ 2 MG/ML VIAL IV PRN (08:19)
[2017-09-30] MEDS: MULTIVITAMINS,THERAGRAN 1 UDTAB TABLET PO SCH (08:19)
[2017-09-30] MEDS: NYSTATIN (PYXIS) 500,000 UNIT/5 ML ORAL.SUSP PO SCH ×3 (08:19→17:29)
[2017-09-30] MEDS: predniSONE 20 MG TABLET PO SCH ×2 (08:19→17:29)
[2017-09-30] MEDS: ACYCLOVIR 200 MG CAPSULE PO SCH ×2 (08:19→17:29)
[2017-09-30] MEDS: FLUCONAZOLE (100 MG) 100 MG TABLET PO SCH (08:19)
[2017-09-30] MEDS: ENSURE ENLIVE 237 ML LIQUID (VANILLA) PO SCH ×3 (08:20→17:30)
[2017-09-30] MEDS: ESCITALOPRAM OXALATE (10 MG) 10 MG TABLET PO SCH (08:20)
[2017-09-30] MEDS: oxyCODONE/APAP (5/325 MG) 1 UDTAB TABLET PO PRN ×2 (10:12→17:29)
--- NOTE | 2017-09-30 10:45 | NUR ---
RN NOTE PATIENT OXYGEN SATURATION IS 85% ON ROOM AIR.
[2017-09-30] MEDS: ALPRAZOLAM 0.25 MG TABLET PO PRN (18:47)
--- NOTE | 2017-09-30 19:30 | NUR ---
MS/RN NOTES: RECEIVED PT. IN BED W/ HOB ELEVATED. A/O X 2-3 W/ PERIODS OF CONFUSION. W/ O2 @ 6LPM VIA N/C SAT. 92-93 %. PT. DOES HAVE A TENDENCY OF TAKING OUT HER N/C. EXPLAINED PT. THE IMPORTANCE OF KEEPING HER N/C BUT PT. RESPONDED " I WILL DO I PLEASE." HAS RIGHT BRACHIAL 18 G MIDLINE PATENT AND INTACT W/ NO S/S OF INFECTION/INFILTRATION NOTED. LFA AND RFA G # 20 PATENT AND INTACT W/ NO S/S OF INFECTION/INFILTRATION NOTED. CALL LIGHT W/ REACH. ALL NEEDS MEET. WILL CONTINUE TO MONITOR.
[2017-09-30 20:00] VITALS: BP 115/61
[2017-09-30] MEDS: ENOXAPARIN SODIUM 40 MG/0.4 ML DISP.SYRIN SQ SCH (21:00)
[2017-09-30] MEDS: QUETIAPINE FUMARATE 25 MG TABLET PO SCH (21:33)
[2017-10-01 06:38] LABS: HEMATOCRIT 32 % (33-45); HEMOGLOBIN 11.1 g/dL (11.5-14.8); LYMPHOCYTES # (AUTO) 0.2 /CMM (0.8-4.8); LYMPHOCYTES % (AUTO) 1.3 % (20.0-44.0); MEAN CORPUSCULAR HGB CONC 35 g/dl (31.0-36.0); MEAN CORPUSCULAR VOLUME 87 fL (82-100); MONOCYTES # (AUTO) 0.1 /CMM (0.1-1.30); MONOCYTES % (AUTO) 0.5 % (2.0-12.0); NEUTROPHILS # (AUTO) 15.6 /CMM (1.8-8.9); NEUTROPHILS % (AUTO) 98.2 % (43.0-81.0); PLATELET COUNT (AUTO) 222 /CMM (150-450); RDW COEFFICIENT OF VARIATION 16.4 (11.5-15.0); RED BLOOD CELL COUNT(AUTO) 3.69 MIL/uL (4.0-5.2); WHITE BLOOD COUNT (AUTO) 15.9 K/uL (4.3-11.0)
[2017-10-01 07:07] LABS: CALCIUM, SERUM 8.1 mg/dL (8.5-10.1); CREATININE 0.5 mg/dL (0.6-1.3); POTASSIUM 4.5 mmol/L (3.5-5.1)
--- NOTE | 2017-10-01 07:24 | NUR ---
RN/MS NOTES: NO ACUTE CHANGES NOTED DURING THIS SHIFT. REPORT GIVEN TO AM NURSE FOR DENY.
--- NOTE | 2017-10-01 07:30 | NUR ---
MS/RN NOTES: RECEIVED PT. IN BED W/ HOB ELEVATED. A/O X 2-3 W/ PERIODS OF CONFUSION. EATING BREAKFAST. " I LOVE PEANUT BUTTER", W/ O2 @ 6LPM VIA N/C SAT. 92-93 %. EXPLAINED TO PT. THE IMPORTANCE OF KEEPING HER N/C BUT PT. RESPONDED " I WILL DO I PLEASE." HAS RIGHT BRACHIAL 18 G MIDLINE PATENT AND INTACT W/ NO S/S OF INFECTION/INFILTRATION NOTED. LFA AND RFA G # 20 PATENT AND INTACT W/ NO S/S OF INFECTION/INFILTRATION NOTED. CALL LIGHT W/ REACH. ALL NEEDS MEET. WILL CONTINUE TO MONITOR.
[2017-10-01] MEDS: ALBUTEROL FS 2.5 MG/0.5 ML VIAL.NEB NEB SCH ×4 (07:36→19:37)
[2017-10-01] MEDS: IPRATROPIUM NEB FS 0.5 MG/2.5 ML AMPUL.NEB NEB SCH ×4 (07:36→19:37)
[2017-10-01 08:00] VITALS: BP 149/70
[2017-10-01] MEDS: ENSURE ENLIVE 237 ML LIQUID (VANILLA) PO SCH ×3 (08:00→16:20)
[2017-10-01] MEDS: SULFAMETHOXAZOLE/TRIMETHOPRIM 15 ML in IV D5W 250 ML IV SCH ×2 (09:18→15:17)
--- NOTE | 2017-10-01 09:30 | NUR ---
MS RN NOTES DUE MEDS GIVEN 18 - STARTED BACTRIM IV.
[2017-10-01] MEDS: FLUCONAZOLE (100 MG) 100 MG TABLET PO SCH (09:33)
[2017-10-01] MEDS: NYSTATIN (PYXIS) 500,000 UNIT/5 ML ORAL.SUSP PO SCH ×3 (09:33→16:13)
[2017-10-01] MEDS: MULTIVITAMINS,THERAGRAN 1 UDTAB TABLET PO SCH (09:35)
[2017-10-01] MEDS: predniSONE 20 MG TABLET PO SCH ×2 (09:35→16:14)
[2017-10-01] MEDS: ACYCLOVIR 200 MG CAPSULE PO SCH ×2 (09:35→16:14)
[2017-10-01] MEDS: ESCITALOPRAM OXALATE (10 MG) 10 MG TABLET PO SCH (09:35)
[2017-10-01] MEDS: MAGNESIUM HYDROXIDE 30 ML UDC PO PRN ×2 (09:39→11:04)
[2017-10-01] MEDS: oxyCODONE/APAP (5/325 MG) 1 UDTAB TABLET PO PRN ×2 (09:39→15:17)
--- NOTE | 2017-10-01 10:50 | NUR ---
MS RN NOTES RECEIVED REPORT FROM FELA MONTANO FOR DENY. RECEIVED PT SITTING UPRIGHT IN BED. AWAKE AND RESPONSIVE, AFEBRILE. CURRENTLY ON O2 @5L/MIN VIA NC, SATURATING AT 92%. IV SITES ARE INTACT, DRESSING KEPT CLEAN AND DRY. NO INFILTRATION NOTED. SAFETY MEASURES ARE IN PLACE. CALL LIGHT IS LEFT WITHIN REACH. WILL CONTINUE TO MONITOR THROUGHOUT SHIFT.
--- NOTE | 2017-10-01 10:51 | NUR ---
MS RN NOTES REPORT GIVEN TO JAI CHAHAL FOR DENY.
[2017-10-01] MEDS: ALPRAZOLAM 0.25 MG TABLET PO PRN (11:04)
[2017-10-01] MEDS ORDERED: BISACODYL SUPP (10 MG) 10 MG/SUPP.RECT SUPP.RECT RC ONE (13:30)
--- NOTE | 2017-10-01 14:00 | NUR ---
MS RN NOTES PT NOTED WITH PUTTING ENDODONTIC ASSISTANT LIGHT EVERY 10-15 MINUTES AND A STAFF MEMBER HAS BEEN IN TO SEE HER EVERYTIME CALL LIGHT IS ON. PT STATES THAT NO ONE HAS COME IN FOR THE PASSED" 8 HOURS." EXPLAINED TO THE PT THAT SHE HAS BEEN SEEN MULTIPLE TIMES BY A STAFF MEMBER. WHILE CHANGING THE PT, PT ALSO NOTED WITH HITTING SUPERINTENDENT OF GENERATION X1 BUT WITH NO INJURY. CHARGE NURSE AWARE. PT HAS NOT TRIED TO GET OUT OF BED AT THIS TIME. WILL CONTINUE TO MONITOR FOR BEHAVIOR.
--- NOTE | 2017-10-01 14:15 | NUR ---
MS RN NOTES PAGED DR. ABARCA RE: ABG RESULTS. STILL WAITING A CALL BACK.
[2017-10-01 14:33] LABS: ABG BASE EXCESS 5.5 mmol/L; ABG OXYGEN SATURATION 88.4 % (92.0-98.5); ABG PCO2 38.1 mmHg (35.0-45.0); ABG PH 7.499 (7.350-7.450); ABG PO2 54.8 mmHg (75.0-100.0); COHb 0.3 % (0.5-1.5); MetHb 0.3 % (0.0-1.5); O2Hb 87.9 % (94.0-97.0); SITE, ABG Right Brachial; VENT MODE, BG NASAL CANNULA 40%
--- NOTE | 2017-10-01 15:10 | NUR ---
MS RN NOTES RECEIVED A CALL BACK FROM DR. ABARCA TO CONTINUE OXYGEN AT 6L/MIN VIA NC.
[2017-10-01] MEDS: IV NS 0.9% 1,000 ML IV PRN (15:21)
[2017-10-01] MEDS: DOCUSATE SODIUM 100 MG CAPSULE PO SCH (16:14)
[2017-10-01] MEDS: HYDROCODONE/APAP 5/325MG 1 EACH TABLET PO PRN ×2 (18:29→22:30)
--- NOTE | 2017-10-01 18:51 | NUR ---
MS RN CLOSING NOTES ALL DUE MEDS GIVEN, NEEDS MET AND RENDERED. AFEBRILE, RESPIRATIONS ARE EVEN AND UNLABORED, NOT IN ANY ACUTE DISTRESS NOTED. NO C/O CHEST PAIN, SOB AT THIS TIME. IV SITE INTACT, NO INFILTRATION NOTED. DRESSING KEPT CLEAN AND DRY. SAFETY MEASURES ARE IN PLACE.. INSTRUCTED PT TO USE CALL LIGHT WHEN ASSISTANCE IS NEEDED. CALL LIGHT IS LEFT WITHIN REACH. WILL ENDORSE TO NEXT SHIFT FOR CONTINUITY OF CARE.
[2017-10-01 20:00] VITALS: BP 114/67
[2017-10-01] MEDS: ENOXAPARIN SODIUM 40 MG/0.4 ML DISP.SYRIN SQ SCH (21:00)
[2017-10-01] MEDS: QUETIAPINE FUMARATE 25 MG TABLET PO SCH (21:44)
[2017-10-02] MEDS: SULFAMETHOXAZOLE/TRIMETHOPRIM 15 ML in IV D5W 250 ML IV SCH ×3 (00:01→16:22)
--- NOTE | 2017-10-02 00:15 | NUR ---
MS/RN NOTES: RECEIVED PT. IN BED W/ HOB ELEVATED. A/O X 2-3 W/ PERIODS OF CONFUSION. W/ O2 @ 6LPM VIA N/C SAT. 92-93 %. PT HAS RIGHT BRACHIAL 18 G MIDLINE PATENT AND INTACT W/ NO S/S OF INFECTION/INFILTRATION NOTED. LFA AND RFA G # 20 PATENT AND INTACT W/ NO S/S OF INFECTION/INFILTRATION NOTED. CALL LIGHT W/ REACH. ALL NEEDS MEET. WILL CONTINUE TO MONITOR.
--- NOTE | 2017-10-02 00:43 | NUR ---
RN/MS NOTES: REPORT GIVEN TO NURSE SAENZ FOR DENY.
--- NOTE | 2017-10-02 02:17 | NUR ---
RN NOTES: BEDSIDE REPORT GIVEN TO NURSE ALLEN, IN MS 2. PT TRANSFERRED TO MS2 ROOM 201.
--- NOTE | 2017-10-02 02:30 | NUR ---
MS RN NOTES AWAKE & RESPONSIVE. NOT IN ANY DISTRESS. NO SOB NOTED. DENIES ANY PAIN OR DISCOMFORT AT THIS TIME. WITH IVF INFUSING WELL. CALL LIGHT WITHIN REACH. BED IN LOWEST POSITION. SR UP X2 FOR SAFETY. WILL CONTINUE TO MONITOR.
--- NOTE | 2017-10-02 06:30 | NUR ---
MS RN NOTES AWAKE & RESPONSIVE. NOT IN ANY DISTRESS. NO SOB NOTED. DENIES ANY PAIN OR DISCOMFORT AT THIS TIME. WITH IVF INFUSING WELL. AM CARE DONE. MONITORED ACCORDINGLY. CALL LIGHT WITHIN REACH. BED IN LOWEST POSITION. SR UP X2 FOR SAFETY. WILL ENDORSE TO NEXT SHIFT.
--- NOTE | 2017-10-02 07:25 | NUR ---
MSRN NOTES AWAKE & RESPONSIVE. NOT IN ANY DISTRESS. NO SOB NOTED. DENIES ANY PAIN OR DISCOMFORT AT THIS TIME. WITH IVF INFUSING WELL. CALL LIGHT WITHIN REACH. BED IN LOWEST POSITION. SR UP X2 FOR SAFETY. WILL CONTINUE TO MONITOR.
[2017-10-02] MEDS: IPRATROPIUM NEB FS 0.5 MG/2.5 ML AMPUL.NEB NEB SCH ×4 (07:33→19:41)
[2017-10-02] MEDS: ALBUTEROL FS 2.5 MG/0.5 ML VIAL.NEB NEB SCH ×4 (07:34→19:41)
[2017-10-02 08:00] VITALS: BP 118/72
[2017-10-02] MEDS: HYDROCODONE/APAP 5/325MG 1 EACH TABLET PO PRN ×2 (08:03→18:27)
[2017-10-02] MEDS: DOCUSATE SODIUM 100 MG CAPSULE PO SCH ×2 (08:03→16:26)
[2017-10-02] MEDS: MULTIVITAMINS,THERAGRAN 1 UDTAB TABLET PO SCH (08:03)
[2017-10-02] MEDS: ACYCLOVIR 200 MG CAPSULE PO SCH ×2 (08:04→16:26)
[2017-10-02] MEDS: predniSONE 20 MG TABLET PO SCH ×2 (08:04→16:27)
[2017-10-02] MEDS: ESCITALOPRAM OXALATE (10 MG) 10 MG TABLET PO SCH (08:05)
[2017-10-02] MEDS: FLUCONAZOLE (100 MG) 100 MG TABLET PO SCH (08:06)
[2017-10-02] MEDS: NYSTATIN (PYXIS) 500,000 UNIT/5 ML ORAL.SUSP PO SCH ×3 (08:07→16:27)
[2017-10-02] MEDS: ENSURE ENLIVE 237 ML LIQUID (VANILLA) PO SCH ×3 (08:10→16:32)
[2017-10-02] MEDS: ALPRAZOLAM 0.25 MG TABLET PO PRN ×2 (08:20→21:06)
[2017-10-02] MEDS: HYDROMORPHONE INJ 0.5 MG/0.5 ML SYRINGE IV PRN (14:43)
[2017-10-02 16:00] VITALS: BP 110/77
[2017-10-02] MEDS ORDERED: EMTR1TAB17 PO (16:34)
[2017-10-02] MEDS ORDERED: ACYC200C PO (16:34)
[2017-10-02] MEDS ORDERED: DOLU1TAB PO (16:34)
[2017-10-02] MEDS ORDERED: FLUC100T8 PO (16:34)
[2017-10-02] MEDS ORDERED: BICT1TAB PO (16:34)
[2017-10-02] MEDS ORDERED: DOCU-141 PO (16:34)
[2017-10-02] MEDS ORDERED: QUET25TA PO (16:34)
[2017-10-02] MEDS ORDERED: SULF1TAB48 PO (16:34)
[2017-10-02] MEDS ORDERED: SULF10VI2 IV (16:34)
[2017-10-02] MEDS ORDERED: AZIT250T PO (16:34)
[2017-10-02] MEDS ORDERED: PRED20TA PO ×2 (16:34)
[2017-10-02] MEDS ORDERED: ALPR0.255 PO (16:34)
[2017-10-02] MEDS ORDERED: NYST5ORA PO (16:34)
[2017-10-02] MEDS ORDERED: LACT-246 PO (16:34)
[2017-10-02] MEDS ORDERED: IPRA0.2S9 NEB (16:34)
--- NOTE | 2017-10-02 19:18 | NUR ---
RN CLOSING NOTES PATIENT IN STABLE CONDITION. ALL NEEDS ATTENDED AND PROVIDED. PATIENT FOR DISCHARGE, WILL BE TRAVEL NURSE BY 1999. KEPT PATIENT SAFE AND COMFORTABLE. BED IN LOW/LOCKED POSITION, SIDERAILS UP X2. CALL LIGHT IN REACH. ENDORSED TO NIGHT RN FOR DENY.
--- NOTE | 2017-10-02 19:30 | NUR ---
MS RN NOTE: PATIENT RESTING IN BED, NO ACUTE DISTRESS NOTED. BREATHING EVEN AND UNLABORED, NO SOB NOTED. MIDLINE TO KRISTINA IN PLACE. IV TO LFA TO BE REMOVED. PATIENT TO BE DISCHARGED TONIGHT TO [facility] UP TIME 1999. DISCHARGE PAPERWORK COMPLETED AND SIGNED DURING DAY SHIFT. PATIENT TO KEEP MIDLINE AND CONTINUE WITH IV ANTIBIOTICS AT FACILITY. BED LOCKED AND IN LOWEST POSITION, CALL LIGHT IN REACH. WILL CONTINUE TO MONITOR.
[2017-10-02 20:00] VITALS: BP 119/73
[2017-10-02] MEDS: AZITHROMYCIN 250 MG TABLET PO SCH (20:27)
[2017-10-02] MEDS: ENOXAPARIN SODIUM 40 MG/0.4 ML DISP.SYRIN SQ SCH (21:00)
[2017-10-02] MEDS: ACETAMINOPHEN 325 MG TABLET PO PRN (21:06)
[2017-10-02] MEDS: QUETIAPINE FUMARATE 25 MG TABLET PO SCH (21:13)
--- NOTE | 2017-10-02 21:30 | NUR ---
MS RN NOTE: PATIENT TO BE TRANSFERRED TO [facility]. REPORT GIVEN TO EMT. DISCHARGE PAPERWORK WITH PATIENT. IV TO LFA REMOVED, COVERED WITH GAUZE, PRESSURE APPLIED, AND SECURED WITH TAPE. MIDLINE TO KRISTINA IN PLACE. PATIENT WITH ALL BELONGINGS. ID REMOVED. PATIENT OFF FLOOR IN STABLE CONDITION.
== END 2017-10-02 21:28 | DRG 890 ==
LOC: ER 14:19 → TELE 17:15 → MED 09-16 08:59 → ICU 09-17 09:54 → TELE 09-19 16:00 → MED 09-21 09:20 → ICU 09-22 15:08 → TELE-TD 09-25 17:21 → TELE1 09-27 00:20 → TELE-TD 09-27 00:27 → MEDSG1 09-29 10:40 → MEDSG2 10-02 02:19
PROVIDERS: ADMIT Nurse Practitioner Acute Care; ATTEND Nurse Practitioner Acute Care
PROC: 5A09357 Assistance with Respiratory Ventilation, Less than 24 Consecutive Hours, Continuous Positive Airway Pressure (ICD-10-PCS; 2017-09-17)
PROC: 5A1935Z Respiratory Ventilation, Less than 24 Consecutive Hours (ICD-10-PCS; principal; 2017-09-22 15:00)
PROC: 0B9M8ZX Drainage of Bilateral Lungs, Via Natural or Artificial Opening Endoscopic, Diagnostic (ICD-10-PCS; principal; 2017-09-22 15:00)
PROC: 0BH17EZ Insertion of Endotracheal Airway into Trachea, Via Natural or Artificial Opening (ICD-10-PCS; principal; 2017-09-22 15:00)
PROC: 05HY33Z Insertion of Infusion Device into Upper Vein, Percutaneous Approach (ICD-10-PCS; 2017-09-30)
DX: B20 Human immunodeficiency virus [HIV] disease (principal); J96.01 Acute respiratory failure with hypoxia; B59 Pneumocystosis; N17.0 Acute kidney failure with tubular necrosis; J44.0 Chronic obstructive pulmonary disease with (acute) lower respiratory infection; B37.0 Candidal stomatitis; B37.81 Candidal esophagitis; E87.1 Hypo-osmolality and hyponatremia; Z87.891 Personal history of nicotine dependence; Z91.14 Patient's other noncompliance with medication regimen; Z98.82 Breast implant status; J44.9 Chronic obstructive pulmonary disease, unspecified; R13.10 Dysphagia, unspecified; F41.9 Anxiety disorder, unspecified; B00.89 Other herpesviral infection; K59.00 Constipation, unspecified; F31.89 Other bipolar disorder; F29 Unspecified psychosis not due to a substance or known physiological condition; D72.829 Elevated white blood cell count, unspecified; R64 Cachexia; Z68.1 Body mass index [BMI] 19.9 or less, adult
CPT/HCPCS: 31720; 36415; 36600; 71045-TC; 74018; 80048-TC; 80053-TC; 80061-TC; 80076-TC; 82803-TC; 83605-TC; 83735-TC; 84100-TC; 84443-TC; 84484-TC; 84703-TC; 85025-TC; 85730-TC; 86360; 87040-TC; 87070-TC; 87081-TC; 87102-TC; 87281; 93307-TC; 94002-TC; 94003-TC; 94640-TC; 94760-TC; 94762-TC; 94799-TC; A4216; A4218; A4606; A6402; J0330; J0456; J0696; J1100; J1650; J1956; J2060; J2270; J2405; J3010; J3490; J7030; J7060; Z7610

== ENCOUNTER 2018-08-04 19:16 | Emergency (ER) | payer MEDICAID ==
[~2018-08-04] VITALS: Ht 165.1 cm; Wt 47.6 kg
[~2018-08-04 19:16] MED LIST: ACYC200C PO; ALPR0.255 PO; AZIT250T PO; BICT1TAB PO; DOCU-141 PO; DOLU1TAB PO; EMTR1TAB17 PO; ESCI20TA PO; FLUC100T8 PO; IPRA0.2S9 NEB; LACT-246 PO; NYST5ORA PO; OXYC-132 PO; PRED20TA PO; QUET25TA PO; SULF10VI2 IV; SULF1TAB48 PO
[2018-08-04 19:42] VITALS: BP 128/78
--- NOTE | 2018-08-04 19:46 | NUR ---
PT LEFT AFTER COMPLETION OF TRIAGE. PT STATES "IM LEAVING TO GO TO [facility]". PT AMBULATED WITH STEADY GAIT NOTED OUT OF ED.
== END 2018-08-04 19:48 | disposition left against medical advice (07) ==
LOC: ER 19:17
DX: Z53.21 Procedure and treatment not carried out due to patient leaving prior to being seen by health care provider (principal); R07.9 Chest pain, unspecified; F32.9 Major depressive disorder, single episode, unspecified; F41.9 Anxiety disorder, unspecified; Z98.890 Other specified postprocedural states